=== PATIENT | male | born 1960 | race African-American/Black ===

== ENCOUNTER 2025-07-23 14:56 | Inpatient (IN) | payer MEDICARE, OTHER, MEDICAID, SELFPAY ==
[2025-07-23] VITALS (17 sets, daily range): BP systolic 134–176; BP diastolic 71–93; PULSE 68–86; RESP 13–24; TEMP 35.9–36.5; O2SAT 93–100; BMI 24.8
--- NOTE | ~2025-07-23 | XR_ITS ---
EXAMINATION: XR retrograde pyelo w/stent RT DATE: 07/24/2025 10:48 INDICATION: Right internal ureteral stent placement TECHNIQUE: Fluoroscopic images from a right internal ureteral stent placement are submitted for review. 19 seconds of fluoroscopy time. FINDINGS: There is a right double-J internal ureteral stent projecting in expected position, with proximal Orla loop at the level of the renal pelvis and distal loop in the pelvis within the bladder lumen. IMPRESSION: 1. Right internal ureteral stent placement. Please refer to real-time procedural findings for details. Reviewed, dictated and finalized at location O. IMPRESSION: 1. Right internal ureteral stent placement. Please refer to real-time procedu ral findings for details.
--- NOTE | ~2025-07-23 | CT_ITS ---
EXAMINATION: CT abdomen pelvis wo con DATE: 07/23/2025 16:53 INDICATION: Right flank pain. Hematuria TECHNIQUE: Computed tomography (CT) of the abdomen and pelvis was performed without intravenous contrast. The dose-length product was 301.45 mGy-cm. COMPARISON: None. FINDINGS: Moderate-sized patchy opacities in the visualized lower lungs. Liver, spleen, adrenal glands and pancreas are unremarkable. Gallbladder is unremarkable. Abdominal aorta is partially calcified but is not aneurysmal. No left-sided hydronephrosis. There is a 1.4 cm nonobstructing right renal stone. Mild-to- moderate right-sided hydronephrosis and mild to moderate right-sided hydroureter. There is a 4 mm calcification in the right mid ureter. There is a 5 mm calcification in the distal right ureter about the right ureterovesicular junction. There is right perinephric and right periureteral fat stranding. Moderate concentric thickening of the marcum of the mildly distended bladder. Multiple metallic densities in the left inner thigh presumably due to previous trauma. No enlarged lymph nodes identified in the abdomen or pelvis. Prostate gland is partially calcified. No appendicitis. No dilated bowel loops. Small moderate amount of stool. Intimal degenerative change scattered throughout the visualized thoracic spine. IMPRESSION: 1. Exta-ih-kftjifim right-sided hydronephrosis and mild to moderate right- sided hydroureter. There is a 4 mm calcification in the right mid ureter. There is a 5 mm calcification in the distal right ureter about the right ureterovesicular junction. There is right perinephric and right periureteral fat stranding. 2. Moderate concentric thickening of the marcum of the mildly distended bladder. 3. Moderate-sized patchy opacities in the visualized lower lungs. Reviewed, dictated and finalized at location Q. IMPRESSION: 1. Ryug-tm-baogvxgn right-sided hydronephrosis and mild to moderate right-osvaldo ed hydroureter. There is a 4 mm calcification in the right mid ureter. There is a 5 mm calcification in the distal right ureter about the right ureterovesicul ar junction. There is right perinephric and right periureteral fat stranding. 2. Moderate concentric thickening of the marcum of the mildly distended bladder . 3. Moderate-sized patchy opacities in the visualized lower lungs.
--- NOTE | ~2025-07-23 | XR_ITS ---
XR abdomen/kub 1V 07/24/2025 08:19 Indication: Kidney stones Procedure: KUB Comparison: No prior studies for comparison. Findings: There is a right renal stone. There is calcification in the right pelvis, likely representing a distal ureteral stone. Bowel gas pattern nonobstructive. No acute osseous abnormality. Lung bases unremarkable. Impression: 1: Probable distal right ureteral stone near the UVJ. 2: Right nephrolithiasis. Reviewed, dictated and finalized at location O. Impression: 1: Probable distal right ureteral stone near the UVJ. 2: Right nephrolithiasis.
[2025-07-23 15:36] LABS: Hematocrit 38.2 % (42.0-52.0); Hemoglobin 13.5 g/dL (14.0-18.0); Immature Granulocyte Percent A 0.4 % (0-0.5); Lymphocytes Absolute Auto 1.36 K/mm3 (0.9-3.2); Mean Corpuscular HGB Conc 35.3 g/dl (32-36); Mean Corpuscular Hemoglobin 30.5 pg (26-34); Mean Corpuscular Volume 86.2 fl (80-100); Nucleated Red Blood Cells Absolute Auto 0.000 K/mm3 (0.0-0.012); Nucleated Red Blood Cells Perc 0.0 % (0.0-0.2); Platelet Count Result 293 k/mm3 (150-375); Red Blood Count 4.43 M/mm3 (4.6-6.20); White Blood Count 9.3 K/mm3 (4.5-10.0)
[2025-07-23] MEDS: MORPHINE SULFATE (*CRX) 4 MG/ML INJ IV PUSH ×3 (15:36→20:21)
[2025-07-23] MEDS: ONDANSETRON INJ 4 MG/2 ML VIAL IV PUSH (15:36)
[2025-07-23] MEDS: SODIUM CHLORIDE 0.9% IV 1,000 ML 999 ML IV CONT (15:36)
--- OUTSIDE RECORDS SUMMARY | 2025-07-23 15:45 | XMS_ITS | Encounter Summary ---
Author Organization [facility] Address [address] [place] [address] Care Team Providers Care Shade Classifier Name Role Phone Pia Deleon MD Primary Care Provider + Encounter Details Date Type Department Care Team (Late st Contact Info) Description 08/09/2007 Outpatient Historical [facility] Adult Hospitalists [facility] [address] [place] [address] [place] [address] [address] Social History Tobacco Use Types Packs/Day Years Used Date Smoking Tobacco: Never Assessed Sex and Gender Information Value Date Recorded Sex Assigned at Not on file Legal Sex Male 4:54 AM PAROLE OR PROBATION OFFICER Gender Identity Not on file Sexual Orientation Not on file documented as of this encounter Plan of Treatment Not on file documented as of this encounter Visit Diagnoses Not on filedocumented in this encounter Additional Health Concerns Infection Onset Date Last Indicated Resolved Time R/O Respiratory 12/17/2024 12/17/2024 12/17/2024 1 :31 PM PAROLE OR PROBATION OFFICER COVID-19 12/17/2024 12/17/2024 01/06/2025 1:16 AM PAROLE OR PROBATION OFFICER documented as of this encounter Care Teams Shade Classifier Relationship Specialty Start Date End Date Pia Deleon MD [address] [place] [address] PCP - General Internal Medicine 01/29/19 documented as of this encounter
--- OUTSIDE RECORDS SUMMARY | 2025-07-23 15:45 | XMS_ITS | Encounter Summary ---
Author Organization [facility] Address [address] [place] [address] Care Team Providers Care Geospatial Technician Name Role Phone Pia Deleon MD Primary Care Provider + Encounter Details Date Type Department Care Team (Late st Contact Info) Description 08/08/2007 Outpatient Historical [facility] [address] [address] Social History Tobacco Use Types Packs/Day Years Used Date Smoking Tobacco: Never Assessed Sex and Gender Information Value Date Recorded Sex Assigned at Not on file Legal Sex Male 4:54 AM SITE SPECIALIST Gender Identity Not on file Sexual Orientation Not on file documented as of this encounter Plan of Treatment Not on file documented as of this encounter Visit Diagnoses Not on filedocumented in this encounter Additional Health Concerns Infection Onset Date Last Indicated Resolved Time R/O Respiratory 12/17/2024 12/17/2024 12/17/2024 1 :31 PM SITE SPECIALIST COVID-19 12/17/2024 12/17/2024 01/06/2025 1:16 AM SITE SPECIALIST documented as of this encounter Care Teams Geospatial Technician Relationship Specialty Start Date End Date Pia Deleon MD [address] [place] [phone] PCP - General Internal Medicine 01/29/19 documented as of this encounter
--- OUTSIDE RECORDS SUMMARY | 2025-07-23 15:45 | XMS_ITS | Encounter Summary ---
Author Organization [facility] Address [address] [place] [address] Care Team Providers Care Ruby On Rails Developer Name Role Phone Pia Deleon MD Primary Care Provider + Encounter Details Date Type Department Care Team (Late st Contact Info) Description 08/06/2007 Inpatient Historical HIS [place] [address] [facility] [address] [place] [address] Marcia Chauhan MD NO ADDRESS ON FILE Esophageal Reflux (Primary Dx) Social History Tobacco Use Types Packs/Day Years Used Date Smoking Tobacco: Never Assessed Sex and Gender Information Value Date Recorded Sex Assigned at Not on file Legal Sex Male 4:54 AM CYTOLOGY TEACHER Gender Identity Not on file Sexual Orientation Not on file documented as of this encounter Plan of Treatment Not on file documented as of this encounter Procedures Procedure Name Priority Date/Time Associated Diagnosis Comments PHENYTOIN LEVEL, TOTAL Routine 7 3:15 PM CDT SEDIMENTATION RATE Routine 08/08/2007 5: 47 AM CDT D-DIMER Routine 08/08/2007 5:47 AM CDT C-REACTIVE PROTEIN Routine 08/08/2007 5: 47 AM CDT PHENYTOIN LEVEL, TOTAL Routine 7 8:30 AM CDT TROPONIN (W/REFLEX CKMB/CK) Routine 08/07/2007 1:20 AM CDT LIPASE Routine 08/06/2007 7:01 PM CDT CBC WITH DIFFERENTIAL Routine 08/06/2007 5:11 PM CDT CBC WITH DIFFERENTIAL Routine 08/06/2007 5:11 PM CDT COMPREHENSIVE METABOLIC PANEL Routine 08/06/2007 5:11 PM CDT TROPONIN (W/REFLEX CKMB/CK) Routine 08/06/2007 5:10 PM CDT documented in this encounter Results * (ABNORMAL) PHENYTOIN TOTAL (08/08/2007 3:15 PM CDT) PHENYTOIN TOTAL 4.3(L) 10.0 - 20.0 ug/mL INTERFACE SYSTEM Comment: Phenytoin Toxic Level = >30 ug/mL Phenytoin Severely Toxic Level = >40 ug/mL 08/08/2007 3:15 PM CDT us Marcia Chauhan MD CHEMISTRY ORDERABLES Edited Performing Organization Address [facility] Phone Number INTERFACE SYSTEM Refer to clinic/hospital department * C-REACTIVE PROTEIN (08/08/2007 5:47 AM CDT) CRP <0.2 0.0 - 0.8 mg/dL INTERFACE SYSTEM 08/08/2007 5:47 AM CDT us Marcia Chauhan MD CHEMISTRY ORDERABLES Edited Performing Organization Address [facility] Phone Number INTERFACE SYSTEM Refer to clinic/hospital department * SEDIMENTATION RATE (08/08/2007 5:47 AM CDT) ESR (SEDIMENTATION RATE) 7 0 - 20 mm/hr INTERFACE SYSTEM 08/08/2007 5:47 AM CDT us Marcia Chauhan MD HEMATOLOGY ORDERABLES Edited Performing Organization Address [facility] Phone Number INTERFACE SYSTEM Refer to clinic/hospital department * D-DIMER (08/08/2007 5:47 AM CDT) D-DIMER QUANT 0.22 <=0.42 ug/mL FEU INTERFACE SYSTEM Comment: DVT Screen reference range <0.45 ug/mL FEU D. Dimer Interpretation: The reference range is not clearly established in uncomplicated pregnanc ies. Values above the upper limit of the reference range are common from the 31st to 40th week of . High negative predictive values for DVT have been reported with the current methodology, as part of a comprehensive medical examination, including risk stratification. 08/08/2007 5:47 AM CDT Marcia Chauhan MD HEMATOLOGY ORDERABLES Edited Performing Organization Address [facility] Number INTERFACE SYSTEM Refer to clinic/hospital department * (ABNORMAL) PHENYTOIN TOTAL (08/07/2007 8:30 AM CDT) PHENYTOIN TOTAL 2.3(L) 10.0 - 20.0 ug/mL INTERFACE SYSTEM Comment: Phenytoin Toxic Level = >30 ug/mL Phenytoin Severely Toxic Level = >40 ug/mL 08/07/2007 8:30 AM CDT Result [facility] Marcia Chauhan MD CHEMISTRY ORDERABLES Edited Performing Organization Address [facility] Phone Number INTERFACE SYSTEM Refer to clinic/hospital department * TROPONIN (W/REFLEX CKMB/CK) (08/07/2007 1:20 AM CDT) TROPONIN T <0.01 <=0.03 ng/mL INTERFACE SYSTEM TROPONIN T INTERP Negative INTERFACE SYSTEM 08/07/2007 1:20 AM CDT Marcia Chauhan MD CHEMISTRY ORDERABLES Edited Performing Organization Address [facility]/ZIP Co de Phone Number INTERFACE SYSTEM Refer to clinic/hospital department * LIPASE (08/06/2007 7:01 PM CDT) LIPASE 20 13 - 60 U/L INTERFAC E SYSTEM 08/06/2007 7:01 PM CDT Marcia Chauhan MD CHEMISTRY ORDERABLES Edited Performing Organization Address [facility] Co de Phone Number INTERFACE SYSTEM Refer to clinic/hospital department * CBC WITH DIFFERENTIAL (08/06/2007 5:11 PM CDT) NEUTROPHILS 55 45 - 70 % INTERFAC E SYSTEM LYMPHOCYTES 36 16 - 45 % INTERFAC E SYSTEM MONOCYTES 8 3 - 13 % INTERFACE SYSTEM EOSINOPHILS 1 0 - 7 % INTERFAC E SYSTEM BASOPHILS 0 0 - 2 % INTERFACE SYSTEM NEUTROPHIL ABSOLUTE 4.09 1.90 - 7.00 K/uL INTERFACE SYSTEM LYMPHOCYTE ABSOLUTE 2.67 0.70 - 4.50 K/uL INTERFACE SYSTEM MONOCYTE ABSOLUTE 0.60 0.10 - 1.30 K/uL INTERFACE SYSTEM EOSINOPHIL ABSOLUTE 0.06 0.00 - 0.70 K/uL INTERFACE SYSTEM BASOPHILS ABSOLUTE 0.02 0.00 - 0.20 K/uL INTERFACE SYSTEM 08/06/2007 5:11 PM CDT Marcia Chauhan MD HEMATOLOGY ORDERABLES Edited Performing Organization Address [facility] Co de Phone Number INTERFACE SYSTEM Refer to clinic/hospital department * (ABNORMAL) CBC WITH DIFFERENTIAL (08/06/2007 5:11 PM CDT) WBC 7.4 4.0 - 9.8 K/uL INTERFACE SYSTEM RBC 4.66 4.50 - 5.40 M/uL INTERFACE SYSTEM HEMOGLOBIN 14.3 13.6 - 16.5 g/dL INTERFACE SYSTEM HEMATOCRIT 38.9(L) 40.0 - 48.0 % INTERFACE SYSTEM MCV 83.5 82.0 - 99.0 fL INTERFACE SYSTEM MCH 30.7 27.2 - 32.6 pg INTERFACE SYSTEM MCHC 36.8(H) 31.5 - 35.5 % INTERFACE SYSTEM RDW 12.4 11.5 - 14.5 % INTERFACE SYSTEM RDW-STDEV 37.3 37.1 - 48.7 fL INTERFACE SYSTEM PLATELETS 237 140 - 350 K/uL INTERFACE SYSTEM MPV 11.0 9.3 - 12.4 fL INTERFACE SYSTEM 08/06/2007 5:11 PM CDT Marcia Chauhan MD HEMATOLOGY ORDERABLES Edited INTERFACE SYSTEM Refer to clinic/hospital department * COMPREHENSIVE METABOLIC PANEL (08/06/2007 5:11 PM CDT) GLUCOSE 96 65 - 99 mg/dL INTERFACE SYSTEM CREATININE 0.79 0.67 - 1.17 mg/dL INTERFACE SYSTEM CALCIUM 9.2 8.4 - 10.2 mg/dL INTERFACE SYSTEM ALKALINE PHOSPHATASE 68 40 - 129 U/L INTERFACE SYSTEM AST 22 12 - 38 U/L INTERFACE SYSTEM ALT 21 0 - 41 U/L INTERFACE SYSTEM TOTAL PROTEIN 7.9 6.3 - 8.6 g/dL INTERFACE SYSTEM ALBUMIN 4.7 3.4 - 4.8 g/dL INTERFACE SYSTEM BILIRUBIN TOTAL 0.4 0.2 - 1.0 mg/dL INTERFACE SYSTEM BUN 16 6 - 20 mg/dL INTERFACE SYSTEM SODIUM 139 135 - 145 mmol/L INTERFACE SYSTEM POTASSIUM 3.5 3.5 - 4.9 mmol/L INTERFACE SYSTEM CHLORIDE 104 96 - 108 mmol/L INTERFACE SYSTEM CO2 26 22 - 30 mmol/L INTERFACE SYSTEM GFR, >60 >=60 mL/min/1.7 sq meter INTERFACE SYSTEM GFR >60 >=60 mL/min/1.7 sq meter INTERFACE SYSTEM Comment: Estimated GFR rate interpretative information for both Americans and non- Americans is available on the [facility] Intranet at: [email or web address] Select: Lab Policies and Procedures Select: Reference Ranges - GFR 08/06/2007 5:11 PM CDT Marcia Chauhan MD CHEMISTRY ORDERABLES Edited Performing Organization Address City/[facility]/ZIP Co de Phone Number INTERFACE SYSTEM Refer to clinic/hospital department * TROPONIN (W/REFLEX CKMB/CK) (08/06/2007 5:10 PM CDT) TROPONIN T <0.01 <=0.03 ng/mL INTERFACE SYSTEM TROPONIN T INTERP Negative INTERFACE SYSTEM 08/06/2007 5:10 PM CDT Marcia Chauhan MD CHEMISTRY ORDERABLES Edited INTERFACE SYSTEM Refer to clinic/hospital department documented in this encounter Visit Diagnoses Diagnosis Esophageal reflux- Primary documented in this encounter Additional Health Concerns Infection Onset Date Last Indicated Resolved Time R/O Respiratory 12/17/2024 12/17/2024 12/17/2024 1 :31 PM CYTOLOGY TEACHER COVID-19 12/17/2024 12/17/2024 01/06/2025 1:16 AM CYTOLOGY TEACHER documented as of this encounter Care Teams Ruby On Rails Developer Relationship Specialty Start Date End Date Pia Deleon MD [address] [place] [phone] PCP - General Internal Medicine 01/29/19 documented as of this encounter
--- OUTSIDE RECORDS SUMMARY | 2025-07-23 15:45 | XMS_ITS | Encounter Summary ---
Author Organization [facility] Address [address] [place] [address] Care Team Providers Care Staffing Assistant Name Role Phone Pia Deleon MD Primary Care Provider + Encounter Details Date Type Department Care Team (Late st Contact Info) Description 05/29/2007 Outpatient Historical [facility] Internal Medicine - [place] [address] [place] [address] Don Carver MD [address] [facility] [address] [place] [phone] Social History Tobacco Use Types Packs/Day Years Used Date Smoking Tobacco: Never Assessed Sex and Gender Information Value Date Recorded Sex Assigned at Not on file Legal Sex Male 4:54 AM DETECTIVE PRECINCT Gender Identity Not on file Sexual Orientation Not on file documented as of this encounter Plan of Treatment Not on file documented as of this encounter Visit Diagnoses Not on filedocumented in this encounter Additional Health Concerns Infection Onset Date Last Indicated Resolved Time R/O Respiratory 12/17/2024 12/17/2024 12/17/2024 1 :31 PM DETECTIVE PRECINCT COVID-19 12/17/2024 12/17/2024 01/06/2025 1:16 AM DETECTIVE PRECINCT documented as of this encounter Care Teams Staffing Assistant Relationship Specialty Start Date End Date Pia Deleon MD [address] [place] [address] PCP - General Internal Medicine 01/29/19 documented as of this encounter
--- OUTSIDE RECORDS SUMMARY | 2025-07-23 15:45 | XMS_ITS | Encounter Summary ---
Author Organization [facility] Address [address] [place] [address] Care Team Providers Care Long Filler Cigar Roller Machine Name Role Phone Pia Deleon MD Primary Care Provider + Encounter Details Date Type Department Care Team (Late st Contact Info) Description 08/07/2007 Outpatient Historical [facility] Adult [place] Hospitalists [address] [address] Social History Tobacco Use Types Packs/Day Years Used Date Smoking Tobacco: Never Assessed Sex and Gender Information Value Date Recorded Sex Assigned at Not on file Legal Sex Male 4:54 AM PRINT PRODUCER Gender Identity Not on file Sexual Orientation Not on file documented as of this encounter Plan of Treatment Not on file documented as of this encounter Visit Diagnoses Not on filedocumented in this encounter Additional Health Concerns Infection Onset Date Last Indicated Resolved Time R/O Respiratory 12/17/2024 12/17/2024 12/17/2024 1 :31 PM PRINT PRODUCER COVID-19 12/17/2024 12/17/2024 01/06/2025 1:16 AM PRINT PRODUCER documented as of this encounter Care Teams Long Filler Cigar Roller Machine Relationship Specialty Start Date End Date Pia Deleon MD [address] [place] [phone] PCP - General Internal Medicine 01/29/19 documented as of this encounter
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
--- OUTSIDE RECORDS SUMMARY | 2025-07-23 15:45 | XMS_ITS | Encounter Summary ---
Author Organization [facility] Address [address] [place] [address] Care Team Providers Care Oil Separator Name Role Phone Pia Deleon MD Primary Care Provider + Encounter Details Date Type Department Care Team (Late st Contact Info) Description 05/29/2007 Outpatient Historical [facility] Internal Medicine - [place] [address] [place] [phone] Don Carver MD [address] [facility] [address] [place] [phone] Social History Tobacco Use Types Packs/Day Years Used Date Smoking Tobacco: Never Assessed Sex and Gender Information Value Date Recorded Sex Assigned at Not on file Legal Sex Male 4:54 AM PATIENT REGISTRATION MANAGER Gender Identity Not on file Sexual Orientation Not on file documented as of this encounter Plan of Treatment Not on file documented as of this encounter Visit Diagnoses Not on filedocumented in this encounter Additional Health Concerns Infection Onset Date Last Indicated Resolved Time R/O Respiratory 12/17/2024 12/17/2024 12/17/2024 1 :31 PM PATIENT REGISTRATION MANAGER COVID-19 12/17/2024 12/17/2024 01/06/2025 1:16 AM PATIENT REGISTRATION MANAGER documented as of this encounter Care Teams Oil Separator Relationship Specialty Start Date End Date Pia Deleon MD [address] [place] [address] PCP - General Internal Medicine 01/29/19 documented as of this encounter
--- OUTSIDE RECORDS SUMMARY | 2025-07-23 15:45 | XMS_ITS | Encounter Summary ---
Author Organization [facility] Address [address] [place] [address] Care Team Providers Care Supervisor Print Line Name Role Phone Pia Deleon MD Primary Care Provider + Encounter Details Date Type Department Care Team (Late st Contact Info) Description 08/06/2007 Outpatient Historical [facility] Internal Medicine - [place] [address] [place] [phone] Christopher Andujar MD [address] [place] [address] Social History Tobacco Use Types Packs/Day Years Used Date Smoking Tobacco: Never Assessed Sex and Gender Information Value Date Recorded Sex Assigned at Not on file Legal Sex Male 4:54 AM ENGINEERING CLERK Gender Identity Not on file Sexual Orientation Not on file documented as of this encounter Plan of Treatment Not on file documented as of this encounter Visit Diagnoses Not on filedocumented in this encounter Additional Health Concerns Infection Onset Date Last Indicated Resolved Time R/O Respiratory 12/17/2024 12/17/2024 12/17/2024 1 :31 PM ENGINEERING CLERK COVID-19 12/17/2024 12/17/2024 01/06/2025 1:16 AM ENGINEERING CLERK documented as of this encounter Care Teams Supervisor Print Line Relationship Specialty Start Date End Date Pia Deleon MD [address] [place] [address] PCP - General Internal Medicine 01/29/19 documented as of this encounter
--- OUTSIDE RECORDS SUMMARY | 2025-07-23 15:45 | XMS_ITS | Encounter Summary ---
Author Organization [facility] Address [address] [place] [address] Care Team Providers Care Manager Sterile Name Role Phone Pia Deleon MD Primary Care Provider + Encounter Details Date Type Department Care Team (Late st Contact Info) Description 08/06/2007 Orders Only [facility] Internal Medicine - [place] [address] [place] [address] Christopher Andujar MD [address] [place] [address] Social History Tobacco Use Types Packs/Day Years Used Date Smoking Tobacco: Never Assessed Sex and Gender Information Value Date Recorded Sex Assigned at Not on file Legal Sex Male 4:54 AM SHOOK MACHINE OPERATOR Gender Identity Not on file Sexual Orientation Not on file documented as of this encounter Progress Notes * Christopher Andujar MD - 04/16/2008 4:07 PM CDT BLOOD PRESSURE: 140/80 Right Arm Sitting PULSE: 70 Right Radial, Regular WEIGHT: 136lbs NURSE NAME: Tano Mahoney A ALLERGIES: No known drug allergies. TOBACCO USE Patient does not currently use tobacco. MEDICATIONS: Medication list current. CHIEF COMPLAINT Patient here for follow up. HISTORY: First seen about 3 months ago as new pt w/ similar c/o. Just now f/u. Labs reviewed w/ pt. 1. lost 10 lbs. 2 weeks ago have n/v. unable to keep food down. 30 mins after eat comes back up. LQabd pain. No blood. Pos heartburn. dysphagia to solids. Keeps liquids down. black tarry stools about 2 weeks ago. dizzy. 2. ?PAD Still on Plavix. No h/o PUD, GIB. 3. chest pain, sob Finally got CxR done. Took 2 months to do. CxR was normal. ?chest pain worse w/ activity. No other associated sx. 4. ?Sz d/o Phenytoin level was very low. Her reports he takes the meds. Advised that this is not possible. No sz. Was also on Keppra. ?why not on now. ?Dr. Elizabeth stopped. CURRENT MEDICATION LIST: PLAVIX ORAL TABLET 75 MG, 1 qd LIPITOR ORAL TABLET 20 MG, 1 qd PHENYTOIN ORAL SUSPENSION 100 MG/4ML, 1 tid MORPHINE SULFATE CR ORAL TABLET 12 HR 100 MG, 1 tab tid CURRENT ALLERGY LIST: ROS: GENERAL: See HISTORY OF PRESENT ILLNESS, FEELS FATIGUED. EYES: No vision changes or diplopia. CARDIAC: See HISTORY OF PRESENT ILLNESS, no orthopnea, no palpitations, no paroxysmal nocturnal dyspnea. RESPIRATORY: See HISTORY OF PRESENT ILLNESS, no cough, no hemoptysis, no wheezing, no sputum noted. SKIN/BREAST/CHEST: No rashes or non-healing lesions. No breast symptoms noted. : No dysuria or hematuria. GI: See HISTORY OF PRESENT ILLNESS. MUSCULOSKELETAL: . chronic back pain and leg pain. PHYSICAL EXAMINATION: CONSTITUTIONAL: GENERAL APPEARANCE: Healthy appearing patient in no distress. EYES: CONJUNCTIVAE/LIDS: PUPILS: NECK/THYROID: Trachea midline. No thyroid enlargement, tenderness, or mass. No supraclavicular or cervical adenopathy. RESPIRATORY: Clear to auscultation and percussion. Normal respiratory effort. CARDIOVASCULAR: CARDIAC: Regular rhythm. No murmurs, rubs, or gallops. ARTERIAL: Normal carotids, normal abdominal aorta pulse, normal pedal pulses. EDEMA/VARICOSITIES OF EXTREMITIES: No edema or varicosities. LYMPHATICS: No lymphadenopathy in the neck, no axillary lymphadenopathy, no inguinal lymphadenopathy noted, no supraclavicular lymphadenopathy noted. GASTROINTESTINAL: ABDOMEN: Normal bowel sounds, No CVA tenderness, no masses are noted, no rigidity is present, TENDERNESS NOTED IN THE EPIGASTRIC AREA. No guarding or rebound tenderness. No percussion tenderness. LIVER/SPLEEN/KIDNEY: No hepatosplenomegaly, tenderness or nodularity. Kidneys not palpable. RECTAL: Rectal exam reveals no masses or hemorrhoids, sphincter tone is normal. STOOL/HEMOCCULT: STOOL IS HEMOCCULT POSITIVE. Stool is normal. OFFICE PROCEDURES: EKG INTERPRETATION SR 65. 1-[address] elev in V3-V5. LVH by voltage. No comparison. ASSESSMENT/PLAN: 272.4-HYPERLIPIDEMIA 305.1-TOBACCO ABUSE 440.20-ATHEROSCLEROSIS, EXTREMITIES 780.39-SEIZURE LAB ORDERS: Order number: [id number] Test Ordered: PHENYTOIN LEVEL 1170 783.21-ABNORMAL LOSS OF WEIGHT V58.69-LONG-TERM USE OF OTHER MEDICATION(S) 786.50-CHEST PAIN UNSPECIFIED LAB ORDERS: Order number: [id number] Test Ordered: EKG WITH INTERPRETATION AND REPORT 70539 789.06-ABD PAIN EPIGASTRIC LAB ORDERS: Order number: [id number] Test Ordered: CBC W/ DIFFERENTIAL 3150 Order number: [id number] Test Ordered: COMPREHENSIVE METABOLIC PANEL & GFR 1112 Order number: [id number] Test Ordered: HEMOCCULT 06653 787.2-DYSPHAGIA MEDICATIONS: NEXIUM ORAL CAPSULE DELAYED RELEASE 40 MG, 1 twice a day for 1 week then 1 once a day, 32 Duration/Days Supply, 32 samples given, status: NEW PRESCRIPTION, 08/06/2007. RETURN VISIT : Patient is being hospitalized. Dr. Tien hannon. Reviewed info. to be directly admitted. Tele bed available. copy of EKG, meds, last labs given to pt and to give to nurse. Electronically Signed by: Christopher Andujar MD on Saturday, September 15, 2007 documented in this encounter Plan of Treatment Not on file documented as of this encounter Visit Diagnoses Not on filedocumented in this encounter Additional Health Concerns Infection Onset Date Last Indicated Resolved Time R/O Respiratory 12/17/2024 12/17/2024 12/17/2024 1 :31 PM SHOOK MACHINE OPERATOR COVID-19 12/17/2024 12/17/2024 01/06/2025 1:16 AM SHOOK MACHINE OPERATOR documented as of this encounter Care Teams Manager Sterile Relationship Specialty Start Date End Date Pia Deleon MD [address] [place] [phone] PCP - General Internal Medicine 01/29/19 documented as of this encounter
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
--- OUTSIDE RECORDS SUMMARY | 2025-07-23 15:45 | XMS_ITS | Encounter Summary ---
Author Organization [facility] Address [address] 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 Gender Identity Not on file Sexual Orientation Not on file documented as of this encounter Plan of Treatment Not on file documented as of this encounter Visit Diagnoses Not on filedocumented in this encounter Additional Health Concerns Infection Onset Date Last Indicated Resolved Time R/O Respiratory 12/17/2024 12/17/2024 12/17/2024 1 :31 PM METAL PLATER COVID-19 12/17/2024 12/17/2024 01/06/2025 1:16 AM METAL PLATER documented as of this encounter Care Teams Assistant Softball Coach Relationship Specialty Start Date End Date Pia Deleon MD [address] [place] [address] PCP - General Internal Medicine 01/29/19 documented as of this encounter
--- OUTSIDE RECORDS SUMMARY | 2025-07-23 15:45 | XMS_ITS | Encounter Summary ---
Author Organization [facility] Address [address] [place] [address] Care Team Providers Care Laboratory Assistant Name Role Phone Pia Deleon MD Primary Care Provider + Encounter Details Date Type Department Care Team (Latest Contact Info) Description 05/29/2007 Outpatient Historical [facility] Internal Medicine - [place] [address] [place] [address] Christopher Medellin, DDS [address], [place] [address] DM w/o Complication Type II (CMS/HCC) (Primary Dx) Social History Tobacco Use Types Packs/Day Years Used Date Smoking Tobacco: Never Assessed Sex and Gender Information Value Date Recorded Sex Assigned at Not on file 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 Gender Identity Not on file Sexual Orientation Not on file documented as of this encounter Plan of Treatment Not on file documented as of this encounter Procedures Procedure Name Priority Date/Time Associated Diagnosis Comments HIV DETECTION W/REFLX CONFIRMATION Routine 05/29/2007 4:34 PM CDT MICROALBUMIN/CREATININ E RATIO, RANDOM UR Routine 05/29/2007 4:34 PM CDT CBC WITH DIFFERENTIAL Routine 05/29/2007 4:34 PM CDT CBC WITH DIFFERENTIAL Routine 05/29/2007 4:34 PM CDT HIGH SENSITIVITY CRP Routine 05/29/2007 4:34 PM CDT TSH Routine 05/29/2007 4:34 PM CDT PSA Routine 05/29/2007 4:34 PM CDT HEMOGLOBIN A1C Routine 05/29/2007 4:34 PM CDT PHENYTOIN LEVEL, TOTAL Routine 7 4:34 PM CDT LIPID PANEL Routine 05/29/2007 4:34 PM CDT COMPREHENSIVE METABOLIC PANEL Routine 05/29/2007 4:34 PM CDT documented in this encounter Results * HIV ANTIBODY W/REFLX CONFIRMATION (05/29/2007 4:34 PM CDT) HIV-1 AND 2 ABS NON-REACTI VE NON-REACT YUNG INTERFACE SYSTEM Comment: Effective May 05, 2007, HIV 1/2 Antibody Screen with Reflexed Confirmati on has replaced HIV-1 Antibody Screen. HIV-1 Antibody Screen is no longer offered due to lack of available kits from the preservative filler machine operator. A NON-REACTIVE HIV 1/2 ANTIBODY RESULT DOES NOT EXCLUDE HIV INFECTION SINCE THE TIME FRAME FOR SEROCONVERSION IS VARIABLE. IF ACUTE HIV INFECTION IS SUSPECTED, ANTIBODY RETESTING AND NUCLEIC ACID AMPLIFICATION (HIV DNA/RNA) TESTING IS RECOMMENDED. Lab test performed by: [facility] [address] [place] [address] [address] ELIDA RODRIGUEZ MD 05/29/2007 4:34 PM CDT us Christopher Medellin DDS CHEMISTRY ORDERABLES Edit ed INTERFACE SYSTEM Refer to clinic/hospital department * MICROALBUMIN/CREATININE RATIO, RANDOM UR (05/29/2007 4:34 PM CDT) MICROALBUMIN/C REAT RATIO, UR <7 0 - 29 mg/g creatinine INTERFACE SYSTEM 05/29/2007 4:34 PM CDT Christopher Medellin DDS URINE ORDERABLES Edited Performing Organization Address [facility] de Phone Number INTERFACE SYSTEM Refer to clinic/hospital department * CBC WITH DIFFERENTIAL (05/29/2007 4:34 PM CDT) NEUTROPHILS 48 45 - 70 % INTERFAC E SYSTEM LYMPHOCYTES 38 16 - 45 % INTERFAC E SYSTEM MONOCYTES 12 3 - 13 % INTERFACE SYSTEM EOSINOPHILS 1 0 - 7 % INTERFAC E SYSTEM BASOPHILS 0 0 - 2 % INTERFACE SYSTEM NEUTROPHIL ABSOLUTE 2.53 1.90 - 7.00 K/uL INTERFACE SYSTEM LYMPHOCYTE ABSOLUTE 2.01 0.70 - 4.50 K/uL INTERFACE SYSTEM MONOCYTE ABSOLUTE 0.65 0.10 - 1.30 K/uL INTERFACE SYSTEM EOSINOPHIL ABSOLUTE 0.06 0.00 - 0.70 K/uL INTERFACE SYSTEM BASOPHILS ABSOLUTE 0.02 0.00 - 0.20 K/uL INTERFACE SYSTEM 05/29/2007 4:34 PM CDT Christopher Medellin DDS HEMATOLOGY ORDERABLES Carlos Alberto javon Performing Organization Address [facility] de Phone Number INTERFACE SYSTEM Refer to clinic/hospital department * (ABNORMAL) CBC WITH DIFFERENTIAL (05/29/2007 4:34 PM CDT) WBC 5.3 4.0 - 9.8 K/uL INTERFACE SYSTEM RBC 4.70 4.50 - 5.40 M/uL INTERFACE SYSTEM HEMOGLOBIN 14.6 13.6 - 16.5 g/dL INTERFACE SYSTEM HEMATOCRIT 40.9 40.0 - 48.0 % INTERFACE SYSTEM MCV 87.0 82.0 - 99.0 fL INTERFACE SYSTEM MCH 31.1 27.2 - 32.6 pg INTERFACE SYSTEM MCHC 35.7(H) 31.5 - 35.5 % INTERFACE SYSTEM RDW 12.2 11.5 - 14.5 % INTERFACE SYSTEM RDW-STDEV 39.1 37.1 - 48.7 fL INTERFACE SYSTEM PLATELETS 268 140 - 350 K/uL INTERFACE SYSTEM MPV 11.0 9.3 - 12.4 fL INTERFACE SYSTEM 05/29/2007 4:34 PM CDT Christopher Medellin DDS HEMATOLOGY ORDERABLES Carlos Alberto javon Performing Organization Address [facility] Phone Number INTERFACE SYSTEM Refer to clinic/hospital department * HEMOGLOBIN A1C (05/29/2007 4:34 PM CDT) HEMOGLOBIN A1C 4.5 4.1 - 6.1 % of Hgb INTERFACE SYSTEM Comment:Hemoglobin variant o bserved. GLUCOSE, MEAN BLOOD 83 mg/dL INTERFACE SYSTEM 05/29/2007 4:34 PM CDT Christopher Medellin DDS CHEMISTRY ORDERABLES Edit ed Performing Organization Address [facility] Phone Number INTERFACE SYSTEM Refer to clinic/hospital department * HIGH SENSITIVITY CRP (05/29/2007 4:34 PM CDT) CRP, HIGHLY SENSITIVE 1.9 <=3.0 mg/L INTERFACE SYSTEM Comment: CARDIOVASCULAR RISK ACCORDING TO AHA/CDC GUIDELINES FOR AGES >17 YEARS: Cardio CRP RISK ACCORDING TO AHA/CDC GUIDELINES <1.0 mg/L Low Cardiovascular Risk 1.0 - 3.0 mg/L Average Cardiovascular Risk 3.1 - 10.0 mg/L High Cardiovascular Risk > 10.0 mg/L Persistent Elevations may represent Non-Cardiovascular Inflammation 05/29/2007 4:34 PM CDT Christopher Medellin DDS CHEMISTRY ORDERABLES Edit ed Performing Organization Address [facility] Phone Number INTERFACE SYSTEM Refer to clinic/hospital department * TSH (05/29/2007 4:34 PM CDT) TSH 0.95 0.27 - 4.20 uU/mL INTERFACE SYSTEM 05/29/2007 4:34 PM CDT Christopher Medellin DDS CHEMISTRY ORDERABLES Edit ed Performing Organization Address [facility] Phone Number INTERFACE SYSTEM Refer to clinic/hospital department * (ABNORMAL) PHENYTOIN TOTAL (05/29/2007 4:34 PM CDT) PHENYTOIN TOTAL <0.6(L) 10.0 - 20.0 ug/mL INTERFACE SYSTEM Comment: Phenytoin Toxic Level = >30 ug/mL Phenytoin Severely Toxic Level = >40 ug/mL Verified by repeat analysis. 05/29/2007 4:34 PM CDT Christopher Medellin DDS CHEMISTRY ORDERABLES Edit ed INTERFACE SYSTEM Refer to clinic/hospital department * (ABNORMAL) COMPREHENSIVE METABOLIC PANEL (05/29/2007 4:34 PM CDT) GLUCOSE 82 65 - 99 mg/dL INTERFACE SYSTEM CREATININE 0.83 0.67 - 1.17 mg/dL INTERFACE SYSTEM CALCIUM 9.0 8.4 - 10.2 mg/dL INTERFACE SYSTEM ALKALINE PHOSPHATASE 78 40 - 129 U/L INTERFACE SYSTEM AST 22 12 - 38 U/L INTERFACE SYSTEM ALT 10 0 - 41 U/L INTERFACE SYSTEM TOTAL PROTEIN 8.2 6.3 - 8.6 g/dL INTERFACE SYSTEM ALBUMIN 4.6 3.4 - 4.8 g/dL INTERFACE SYSTEM BILIRUBIN TOTAL 0.5 0.2 - 1.0 mg/dL INTERFACE SYSTEM BUN 10 6 - 20 mg/dL INTERFACE SYSTEM SODIUM 135 135 - 145 mmol/L INTERFACE SYSTEM POTASSIUM 4.3 3.5 - 4.9 mmol/L INTERFACE SYSTEM CHLORIDE 97 96 - 108 mmol/L INTERFACE SYSTEM CO2 21(L) 22 - 30 mmol/L INTERFACE SYSTEM GFR, >60 >=60 mL/min/1.7 sq meter INTERFACE SYSTEM GFR >60 >=60 mL/min/1.7 sq meter INTERFACE SYSTEM Comment: Estimated GFR rate interpretative information for both Americans and non- Americans is available on the [facility] Intranet at: [email or web address] Select: Lab Policies and Procedures Select: Reference Ranges - GFR 05/29/2007 4:34 PM CDT Christopher Medellin DDS CHEMISTRY ORDERABLES Edit ed Performing Organization Address [facility] de Phone Number INTERFACE SYSTEM Refer to clinic/hospital department * (ABNORMAL) LIPID PANEL (05/29/2007 4:34 PM CDT) CHOLESTEROL 157 100 - 199 mg/dL INTERFACE SYSTEM TRIGLYCERIDE 97 10 - 149 mg/dL INTERFACE SYSTEM HDL 35(L) 40 - 59 mg/dL INTERFACE SYSTEM CHOL/HDL RATIO 4.5 2.0 - 5.0 INTER FACE SYSTEM LDL CALCULATED 103(H) <=99 mg/dL INTERFACE SYSTEM LIPID PANEL COMMENT See Below INTERFACE SYSTEM Comment: The adult ATP and pediatric NCEP classifications for lipids are available on the [facility] Intranet at: [email or web address] Select: Lab Policies and Procedures Select: Reference Ranges - Lipids 05/29/2007 4:34 PM CDT Christopher Medellin DDS CHEMISTRY ORDERABLES Edit ed Performing Organization Address [facility] de Phone Number INTERFACE SYSTEM Refer to clinic/hospital department * PSA (05/29/2007 4:34 PM CDT) PSA 1.0 0.0 - 4.0 ng/mL INTERFACE SYSTEM Comment:Performed on [employer] E170 System 05/29/2007 4:34 PM CDT Christopher Medellin DDS CHEMISTRY ORDERABLES Edit ed Performing Organization Address [facility] Co de Phone Number INTERFACE SYSTEM Refer to clinic/hospital department documented in this encounter Visit Diagnoses Diagnosis Type II or unspecified type diabetes mellitus without mention of complication, not stated as uncontrolled- Primary documented in this encounter Additional Health Concerns Infection Onset Date Last Indicated Resolved Time R/O Respiratory 12/17/2024 12/17/2024 12/17/2024 1 :31 PM ELECTRICAL TECH/PROJECT MANAGER COVID-19 12/17/2024 12/17/2024 01/06/2025 1:16 AM ELECTRICAL TECH/PROJECT MANAGER documented as of this encounter Care Teams Laboratory Assistant Relationship Specialty Start Date End Date Pia Deleon MD [address] [place] [address] PCP - General Internal Medicine 01/29/19 documented as of this encounter
--- OUTSIDE RECORDS SUMMARY | 2025-07-23 15:45 | XMS_ITS | Encounter Summary ---
Author Organization [facility] Address 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 Gender Identity Not on file Sexual Orientation Not on file documented as of this encounter Plan of Treatment Not on file documented as of this encounter Visit Diagnoses Not on filedocumented in this encounter Additional Health Concerns Infection Onset Date Last Indicated Resolved Time R/O Respiratory 12/17/2024 12/17/2024 12/17/2024 1 :31 PM ELEMENTARY ESL TEACHER COVID-19 12/17/2024 12/17/2024 01/06/2025 1:16 AM ELEMENTARY ESL TEACHER documented as of this encounter Care Teams [employer] Principal Relationship Specialty Start Date End Date Pia Deleon MD [address] [place] [address] PCP - General Internal Medicine 01/29/19 documented as of this encounter
--- OUTSIDE RECORDS SUMMARY | 2025-07-23 15:45 | XMS_ITS | Encounter Summary ---
Author Organization [facility] Address [address] 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 Gender Identity Not on file Sexual Orientation Not on file documented as of this encounter Plan of Treatment Not on file documented as of this encounter Visit Diagnoses Not on filedocumented in this encounter Additional Health Concerns Infection Onset Date Last Indicated Resolved Time R/O Respiratory 12/17/2024 12/17/2024 12/17/2024 1 :31 PM HOTEL HOUSEMAN COVID-19 12/17/2024 12/17/2024 01/06/2025 1:16 AM HOTEL HOUSEMAN documented as of this encounter Care Teams Commercial Lending Relationship Manager Relationship Specialty Start Date End Date Pia Deleon MD [address] [place] [address] PCP - General Internal Medicine 01/29/19 documented as of this encounter
--- OUTSIDE RECORDS SUMMARY | 2025-07-23 15:45 | XMS_ITS | Encounter Summary ---
Author Organization [facility] Address 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 Gender Identity Not on file Sexual Orientation Not on file documented as of this encounter Plan of Treatment Not on file documented as of this encounter Visit Diagnoses Not on filedocumented in this encounter Additional Health Concerns Infection Onset Date Last Indicated Resolved Time R/O Respiratory 12/17/2024 12/17/2024 12/17/2024 1 :31 PM GRANULIZING MACHINE OPERATOR COVID-19 12/17/2024 12/17/2024 01/06/2025 1:16 AM GRANULIZING MACHINE OPERATOR documented as of this encounter Care Teams Welding Supervisor Relationship Specialty Start Date End Date Pia Deleon MD [address] [place] [address] PCP - General Internal Medicine 01/29/19 documented as of this encounter
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
--- OUTSIDE RECORDS SUMMARY | 2025-07-23 15:45 | XMS_ITS | Encounter Summary ---
Author Organization [facility] Address [address] [place] [address] Care Team Providers Care Sea Shell Gatherer Name Role Phone Pia Deleon MD Primary Care Provider + Encounter Details Date Type Department Care Team (Late st Contact Info) Description 08/06/2007 [facility] [address] 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 Gender Identity Not on file Sexual Orientation Not on file documented as of this encounter Plan of Treatment Not on file documented as of this encounter Visit Diagnoses Not on filedocumented in this encounter Additional Health Concerns Infection Onset Date Last Indicated Resolved Time R/O Respiratory 12/17/2024 12/17/2024 12/17/2024 1 :31 PM PHOTO CHECKER AND ASSEMBLER COVID-19 12/17/2024 12/17/2024 01/06/2025 1:16 AM PHOTO CHECKER AND ASSEMBLER documented as of this encounter Care Teams Sea Shell Gatherer Relationship Specialty Start Date End Date Pia Deleon MD [address] [place] [address] PCP - General Internal Medicine 01/29/19 documented as of this encounter
--- OUTSIDE RECORDS SUMMARY | 2025-07-23 15:46 | XMS_ITS | Clinical Summary ---
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 quality of the bowel preparation was inadequate. The ileocecal valve, appendiceal orifice, and rectum were photographed. Estimated Blood Loss: Estimated blood loss was minimal. Findings: The perianal and digital rectal examinations were normal. Large amount of fibrous retained colonic content present, much of which was too large to be suctioned through the scope. There was frequent clogging. All liquid content and small material that was able was suctioned via the scope. Scope was advanced to the cecum. Able to visualize that polypoid area of ascending colon was large lipomatous component of IC valve. Interrogated with a biopsy forceps with positive pillow sign seen. No other polyps were seen. Polyps greater than 5 mm potentially could have been missed. Impression: - Preparation of the colon was inadequate. - Polypoid area in right colon found to be large lipomatous component of ICV - No specimens collected. Recommendation: - Patient has a contact number available for emergencies. The signs and symptoms of potential delayed complications were discussed with the patient. Return to normal activities tomorrow. Written discharge instructions were provided to the patient. - Resume previous diet. - Continue present medications. - Repeat colonoscopy in 6 months because the bowel preparation was poor. - Would plan for two scoops Miralax daily and low fiber diet one week prep Devon Johnston MD 10/27/2024 1:55:26 PM This report has been signed electronically. Number of Addenda: [address]; [place] [address] Devon Johnston MD GI PROCEDURE ORDERABLES Final Result from Last 3 Months or Most Recently Relevant to Health Maintenance Insurance [facility] MEDICAID [place] RX [facility] Medicare Part D RX [employer] RX Member Subscriber Plan / Payer (Ef fective 2024-Present) Name:Jf Gomez Sr. Relation to Subscriber:Self Name:Jf Gomez Sr. Subscriber ID:Not on file Payer ID:Not on file Group ID:[id number] Type:RX Commercial Address: [facility] [employer] * Guarantor: [employer] [facility] [employer]) Account Type Relation to Patient Date of Phone Billing Address Corporate Employer DEFAULT ADDRESS [address] [employer] Advance Directives For more information, please contact: [phone] * Full Code (Latest Code Status on File) Date Activated Date Inactivated Comments 10/27/2024 7:53 AM 10/27/2024 11:56 AM * Full Code Date Activated Date Inactivated Comments 08/25/2024 10:03 AM 08/25/2024 1:38 PM * Full Code Date Activated Date Inactivated Comments 08/26/2019 7:02 PM 08/27/2019 7:27 PM * Full Code Date Activated Date Inactivated Comments 08/26/2019 12:04 PM 08/26/2019 7:02 PM * Full Code Date Activated Date Inactivated Comments 06/28/2019 11:35 AM 06/29/2019 9:38 PM Care Teams Facility Maintenance Worker Relationship Specialty Start Date End Date Pia Deleon MD [address] [place] [id number] PCP - General Internal Medicine 01/29/19
--- OUTSIDE RECORDS SUMMARY | 2025-07-23 15:46 | XMS_ITS | Clinical Summary ---
Author Organization [facility] Address [address] [place] [address] Care Team Providers Care Chief Of Staff Name Role Phone Brianna Laura MD Unavailable Pia Garner MD Primary Care Provider + Source Comments [facility],non-owned Affiliates and Associated Physician Practices is amultiple site organization consisting of ambulatory clinics and hospital sitesin [place], [place], [place] and [place]. This disclosure is being madepursuant to the Care Everywhere program and may not contain all information available regarding this patient. Last updated 18.[facility] Allergies Active Allergy Reactions Criticality Noted Date Comments Contrast-Iodinated Agents For Ct/Other Anaphylaxis,Itching, Nausea and/or Vomiting High 03/06/2010 anaphylactic Reaction: ANAPHYLAXIS, Reaction: Itching, Duloxetine GI Discomfort Low 06/29/2022 Fentanyl Other High 07/24/2023 Per pt this medication gave him a heart attack Gabapentin Other,Vision Changes 03/22/2021 Ataxia, visual disturbance Lisinopril Anaphylaxis,Angioede ma,Swelling High 09/10/2019 Medications * Be aware that medications may not be up to date on this document. Alwaysverify current medications with the patient. clopidogrel (PLAVIX) 75 MG tablet Take 1 (one) tablet by mouth once daily Active EPINEPHrine (Epipen) 0.3 MG/0.3ML auto-injector pen Inject 0.3 mL into muscle once daily as needed 2 Active fluticasone propionate (Flonase) 50 MCG/ACT nasal spray [place] 2 (two) sprays into the nose once daily 2 Active linaCLOtide (Linzess) 145 MCG capsule Take 1 (one) capsule by mouth once daily 2 Active albuterol HFA (Proventil; Ventolin; Proair) 108 (90 Base) MCG/ACT inhaler Inhale 2 (two) puffs by mouth every 6 hours as needed Active atorvastatin (Lipitor) 40 MG tablet Take 1 (one) tablet by mouth 2 Active Cholecalciferol 50 MCG (2000 UT) 50 mcg 2 Active dilTIAZem ER 24hr (Tiazac) 120 MG capsule Take 1 (one) capsule by mouth once daily 2 Active fluocinolone (Dermotic) 0.01 % otic oil Apply 5 drops to affected ear twice daily 2 Active nicotine (Nicoderm CQ) 14 MG/24HR patch 2 Active Selenium Sulfide 2.3 % SHAM Lather dime sized amount to affected area in shower, let sit for 5 minutes, then rinse off 2 Active tiZANidine HCl 4 MG Take 4 mg by mouth 3 times daily Active morphine CR 12hr (MS Contin) 30 MG tablet Take 1 (one) tablet by mouth every 8 hours as needed 2 Active oxyCODONE, immediate release, (Roxicodone) 5 MG tabletIndicatio ns:Fall from ladder, subsequent encounter,Traum a Take 1 (one) tablet by mouth every 6 hours as needed for Pain 20 tablet 3 Active docusate sodium (Colace) 100 MG capsule Take 1 (one) capsule by mouth once daily as needed for Constipation 14 capsule 3 Active gabapentin (Neurontin) 300 MG capsule Take 1 (one) capsule by mouth 3 times daily 270 capsule 4 3 Active amoxicillin (Amoxil) 500 MG capsule TAKE 1 CAPSULE BY MOUTH FOUR TIMES DAILY UNTIL ALL TAKEN 4 Active cyanocobalamin (Vitamin B-12) 1000 MCG tablet 1 (one) tablet 3 Active diclofenac sodium (Voltaren) 1 % gel APPLY 2 GM TO AFFECTED AREA(S) FOUR TIMES A DAY NEEDED OVER RIGHT HAND AND/OR ELBOW AND OTHER JOINT PAINS HELPFUL FOR PAIN RELIEF. DO NOT EXCEED MORE THAN 16 GRAMS DAILY TO ANY LOWER EXTREMITY JOINT. NOT MORE THAN 8 GRAMS DAILY TO ANY UPPER EXTREMITY JOINT. MAX 32GM/DAY OVER ALL JOINTS. (MEASURE DOSE WITH RULER ATTACHED INSIDE BOX) 4 Active guaiFENesin (Organidin Nr) 200 MG tablet 1 (one) tablet 4 Active hydroCHLOROthia zide (Microzide) 12.5 MG capsule TAKE ONE CAPSULE BY MOUTH ONCE A DAY FOR BLOOD PRESSURE 3 Active trospium (Sanctura) 20 MG tablet 1 (one) tablet 3 Active azelastine (Optivar) 0.05 % ophthalmic solution 1 (one) drop 2 times daily 4 Active DULoxetine (Cymbalta) 30 MG capsule Take 1 (one) capsule by mouth once daily 4 Active HYDROcodone-shaneka taminophen (Beaver) 5-325 MG tablet TAKE 1 TABLET BY MOUTH EVERY 4 TO 6 HOURS NEEDED PAIN 4 Active ondansetron, disintegrating, (Zofran ODT) 4 MG tablet Take 1 (one) tablet by mouth every 6 hours as needed 4 Active Active Problems Problem Noted Date Diagnosed Date Other osteoporosis 09/24/2013 Other and unspecified hyperlipidemia 09/24/2013 Vitamin D deficiency 09/24/2013 Overview (09/01/2015): Cough 02/15/2012 Shoulder arthritis 01/11/2010 Fall from other slipping, tripping, or stumbling 12/12/2008 Accidental fall from ladder 10/05/2008 Trauma 10/05/2008 Immunizations Immunization Administration Dates Next Due PNEUMOCOCCAL PPSV23 06/10/2013 Family History Medical History Relation Name Comments Breast Cancer after age 50 or unknown Mother still living Diabetes Mother Hypercholesterolemia Mother Breast Cancer at or under age 50 Sister still living Relation Name Status Comments Mother Sister Social History Tobacco Use Types Packs/Day Years Used Date Smoking Tobacco: Every Day Cigarettes 0.5 35 Smokeless Tobacco: Never Tobacco Cessation:Ready to Q uit: Not Asked; Counseling Given: Not Answered Alcohol Use Standard Drinks/Week Comments No 0 (1 standard drink = 0.6 oz pur e alcohol) occasionally Sex and Gender Information Value Date Recorded Sex Assigned at Not on file 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 Gender Identity Not on file Sexual Orientation Not on file Last Filed Vital Signs Vital Sign Reading Time Taken Comments Blood Pressure 145/61 12/28/2024 1:56 PM MAGNESIUM MILL OPERATOR Pulse 73 12/28/2024 1:56 PM MAGNESIUM MILL OPERATOR Temperature 36.6 C (97.9 F) 12/28/2024 1:56 PM MAGNESIUM MILL OPERATOR Respiratory Rate 14 07/29/2023 1:34 PM CDT Oxygen Saturation 94% 12/28/2024 1:56 PM MAGNESIUM MILL OPERATOR Inhaled Oxygen Concentration - - Weight 70.3 kg (155 lb) 12/28/2024 1:56 PM MAGNESIUM MILL OPERATOR Height 175.3 cm (5' 9) 12/28/2024 1:56 PM MAGNESIUM MILL OPERATOR Body Mass Index 22.89 12/28/2024 1:56 PM MAGNESIUM MILL OPERATOR Plan of Treatment Health Maintenance Due Date Last Done Comments COLOGUARD (AGES 45-75) - COLON CA SCREENING 1960 CT COLONOGRAPHY - COLON CA SCREENING 1960 FIT - COLON CA SCREENING 1960 FLEX SIG - COLON CA SCREENING 1960 HIB VACCINE (1 of 1 - Risk 1-dose series) 02/05/1962 MENINGOCOCCAL GROUPS A/C/Y/W VACCINE (1 - Risk 2-dose series) 1962 MENINGOCOCCAL (Group B) VACCINE SHARED DECISION-MAKING (1 of 4 - Increased Risk) 1970 HEPATITIS C SCREENING 11/03/1978 DTAP/TDAP/TD VACCINES (1 - Tdap) 1979 ZOSTER VACCINE (1 of 2) 2010 PNEUMOCOCCAL VACCINE 50+ (2 of 2 - PCV) 06/10/2014 06/10/2013 Respiratory Syncytial Virus (RSV) Vaccine Pt: or over 60 yrs (1 - Risk 60-74 years 1-dose series) 2020 COVID-19 VACCINE (4 - season) 2024 09/15/2021, 01/20/2021, 12/30/2020 DEPRESSION SCREENING 12/02/2024 INFLUENZA VACCINE (#1) 2025 , 09/04/2023, 08/21/2022, Additional history exists COLON MONITORING 10/27/2034 10/27/2024, 08/25/2024 COLONOSCOPY - COLON CA SCREENING 10/27/2034 10/27/2024, 08/25/2024 Colorectal Cancer Screening 10/27/2034 HIV SCREENING Completed 02/15/2012 HEPATITIS B VACCINE Aged Out No longe r eligible based on patient's age to complete this topic HPV VACCINE Aged Out No longer eligi ble based on patient's age to complete this topic Medical Devices Implanted Type Area Chef Broiler Or Fry Device Identifier Shelf Expiration Date Model / Serial / Lot Graft Tissue Allomend Aclr Drml Mtrx 4x4 Implanted:Qty: 1 on 12/26/2022 by America Love DPM at [facility] Right: Foot [employer] 12/25/2023 [id number] / / [id number] Procedures Procedure Name Priority Date/Time Associated Diagnosis Comments HIV-1 HIV-2 ANTIBODY Today 02/15/2012 9:36 PM CDT from Last 3 Months or Most Recently Relevant to Health Maintenance Results * HIV-1 HIV-2 ANTIBODY (02/15/2012 9:36 PM CDT) HIV-1/HIV-2 Nonreactive Nonreactive [facility] Blood specimen (specimen) BLOOD SPECIMEN / Unknown 02/15/2012 9:36 PM CDT 02/15/2012 9:57 PM CDT Chayo Boggs MD LAB - CHEMISTRY ORDERABLES nal Result [facility] [address] [place] [address] from Last 3 Months or Most Recently Relevant to Health Maintenance Insurance [facility] ADMINISTRATION MEDICAID TPL THIRD DEMOCRAT LIABILITY [employer] Party Liability Advance Directives * FULL RESUSCITATION (Latest Code Status on File) Date Activated Date Inactivated Comments 06/09/2013 10:15 AM 06/10/2013 10:58 AM * FULL RESUSCITATION Date Activated Date Inactivated Comments 09/22/2012 3:58 PM 09/23/2012 5:12 PM * FULL RESUSCITATION Date Activated Date Inactivated Comments 09/20/2012 9:01 AM 09/22/2012 3:58 PM * FULL RESUSCITATION Date Activated Date Inactivated Comments 02/15/2012 7:49 PM 02/18/2012 2:12 AM * Full Code Date Activated Date Inactivated Comments 01/11/2010 11:30 AM 01/13/2010 10:02 PM Care Teams Chief Of Staff Relationship Specialty Start Date End Date Pia Deleon MD [address] [place] [id number] PCP - General Internal Medicine 12/19/22 Brianna Laura MD Endocrinology 09/24/13
--- OUTSIDE RECORDS SUMMARY | 2025-07-23 15:46 | XMS_ITS | Encounter Summary ---
Author Organization [facility] Address [address] [place] [address] Care Team Providers Care Marketing Summer Intern Name Role Phone Pia Deleon MD Primary Care Provider + Encounter Details Date Type Department Care Team (Late st Contact Info) Description 07/21/2025 External Device Data ST[place] ABSTRACTION Provider, Abstract NO ADDRESS ON FILE Social History Tobacco Use Types Packs/Day Years Used Date Smoking Tobacco: Every Day Cigarettes 0.5 30 Smokeless Tobacco: Never Alcohol Use Standard Drinks/Week Comments No 0 [...] week 06/28/2019 How often do you attend chur or holiness services? 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 Gender Identity Not on file Sexual Orientation Not on file Occupation Industry Job Start Date Job End Date Not on file Not on file Not on file Not on file documented as of this encounter Plan of Treatment Not on file documented as of this encounter Visit Diagnoses Not on filedocumented in this encounter Additional Health Concerns Assessment Noted Time PHQ-9 Depression Total Score: 4 03/25/20 24 10:41 AM CDT documented as of this encounter Care Teams Marketing Summer Intern Relationship Specialty Start Date End Date Pia Deleon MD [address] [place] [address] PCP - General Internal Medicine 01/29/19 documented as of this encounter
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
[2025-07-23 15:52] LABS: Need Manual Microscopic Reviewed
[2025-07-23 15:53] LABS: Add Urine Microscopic? YES; Appearance Urine Cloudy (Clear); Glucose Urine UA Negative (Negative); Leukocyte Esterase Ur 1+ LEU/UL (Negative); Nitrate Urine Negative (Negative); Specific Grav Ur 1.023 (1.001-1.035)
--- NOTE | 2025-07-23 15:56 | ED_ITS ---
HPI - Male Genitourinary General Chief complaint: Urogenital-Male Stated complaint: Kidney Stone Time Seen by Provider: 07/23/25 15:01 History of Present Illness HPI Narrative: Patient is a 64-year-old male who presents ER with right-sided flank pain. Sudden onset last night. Radiates into the right lower quadrant of the abdomen. Associated with nausea vomiting. He has been having hematuria as well as urinary frequency. Has history of kidney stones. No fevers or chills. Related Data Allergies Allergy/AdvReac Type Severity Reaction Status Date / Time iohexol (From contrast - CT, Allergy Severe Heart Verified 07/23/25 14:59 X-RAY) palpitations Review of Systems 2 Review of Systems: All systems reviewed & are unremarkable except as noted in HPI and below Constitutional: Constitutional: Reports no additional constitutional complaints Cardiovascular: Cardiovascular: Reports no additional cardiovascular complaints Respiratory: Respiratory: Reports no additional respiratory complaints Gastrointestinal: Gastrointestinal: Reports no additional gastrointestinal complaints Genitourinary: Genitourinary: Reports no additional male genitourinary complaints [facility] Past Medical History Medical History (Updated 07/23/25 @ 18:39 by Bon Azar MD) Kidney stones Hypertension Social History Social History (Updated 07/23/25 @ 16:00 by Bon Azar MD) Social History: [place] Exam 2 Narrative: GENERAL: Well-appearing, well-nourished, and in no acute distress. HEAD: Normocephalic, atraumatic. ENT: Mucous membranes moist. CHEST: Clear to auscultation. No respiratory distress. HEART: Regular rate and rhythm. Normal peripheral pulses. ABDOMEN: Soft, tender to palpation right lower quadrant, nondistended. Back: No midline tenderness the T/L-spine. Pain patches right flank pain. EXTREMITIES: Normal range of motion. No edema. SKIN: Warm, dry, no rash. NEURO: Alert and oriented x3. PSYCH: Normal mood and affect. Course Course Emergency Course: Persistent pain despite morphine 8 mg. Will plan admission for observation here. Urology consulted regarding stones as well as urinalysis, Dr. Mcnamara recommends ceftriaxone IV and NPO at midnight in case he needs a stent in the morning. Hospitalist service contacted and patient accepted. Vital Signs Vital signs: Vital Signs Temperature 97.7 F 07/23/25 15:03 Pulse Rate 73 07/23/25 15:03 Respiratory Rate 17 07/23/25 15:03 Blood Pressure 164/93 H 07/23/25 15:03 Pulse Oximetry 98 07/23/25 15:03 Oxygen Delivery Room Air 07/23/25 15:03 Temperature 97.7 F 07/23/25 15:10 Pulse Rate 82 07/23/25 17:55 Respiratory Rate 14 07/23/25 17:55 Blood Pressure 162/77 H 07/23/25 17:55 Pulse Oximetry 97 07/23/25 17:55 Oxygen Delivery Room Air 07/23/25 15:03 MDM - Male Genitourinary Lab Data 07/23/25 15:30 07/23/25 15:30 Labs: Lab Results 07/23/25 Range/Units 15:30 WBC 9.3 (4.5-10.0) K/mm3 RBC 4.43 L (4.6-6.20) M/mm3 Hgb 13.5 L (14.0-18.0) g/dL Hct 38.2 L (42.0-52.0) % MCV 86.2 (80-100) fl MCH 30.5 (26-34) pg MCHC 35.3 (32-36) g/dl RDW 12.2 (11.5-14.5) % Plt Count 293 (150-375) k/mm3 MPV 9.8 (7.4-10.4) fl Immature Gran % (Auto) 0.4 (0-0.5) % Neut % (Auto) 73.5 H (45.5-73.1) % Lymph % (Auto) 14.6 L (18.3-44.2) % [place] % (Auto) 11.1 H (2.6-8.5) % Eos % (Auto) 0.1 (0-4.4) % Baso % (Auto) 0.3 (0.2-1.2) % Lymph # (Auto) 1.36 (0.9-3.2) K/mm3 [place] # (Auto) 1.0 H (0.1-0.6) K/mm3 Eos # (Auto) 0.0 (0-0.3) K/mm3 Baso # (Auto) 0.0 (0.0-0.1) K/mm3 Abs Immat Gran (auto) 0.04 H (0.00-0.031) K/mm3 Absolute Neuts (auto) 6.8 H (1.3-6.7) K/mm3 Absolute Nucleated RBC 0.000 (0.0-0.012) K/mm3 Nucleated RBC % 0.0 (0.0-0.2) % Sodium 135 L (137-145) mmol/L Potassium 4.0 (3.4-5.0) mmol/L Chloride 103 (98-107) mmol/L Carbon Dioxide 24 (22-30) mmol/L Anion Gap 8 (4-12) mmol/L BUN 15 (9-20) mg/dL Creatinine 1.02 (0.7-1.3) mg/dL Estim Creat Clear Calc 63 ml/min Estimated GFR > 60 (59 - ) Glucose 113 H (65-110) mg/dL Calcium 9.8 (8.4-10.2) mg/dL Total Bilirubin 0.7 (0.2-1.3) mg/dL AST 39 (17-59) U/L ALT 18 (6-50) U/L Alkaline Phosphatase 88 (38-126) U/L Total Protein 8.2 (6.3-8.2) g/dL Albumin 4.2 (3.5-5.1) g/dL Urine Color Lane H (Yellow) Urine Appearance Cloudy H (Clear) Urine pH 6.0 (5.0-9.0) Ur Specific [place] 1.023 (1.001-1.035) Urine Protein 2+ H (Negative) mg/dL Urine Glucose (UA) Negative (Negative) mg/dL Urine Ketones Negative (Negative) mg/dL Ur Blood (Man) 3+ H (Negative) Urine Nitrate Negative (Negative) Urine Bilirubin Negative (Negative) Urine Urobilinogen 1.0 (<2.0) mg/dL Add Ur Microanalysis Reviewed Leukocyte Esterase Rfl 1+ H (Negative) MAURI/UL Urine RBC >100 H (0-2) /hpf Urine WBC 6-10 H (0-3) /hpf Ur Squamous Epith Cells Few (Few) /hpf Calcium Oxalate Crystal Present (None) /hpf Urine Bacteria 4+ H /hpf Urine Casts 6-10 Imaging Data Radiologist's impression: ITS Impressions Abdomen/Pelvis CT 07/23/25 16:55 IMPRESSION: 1. [id number] right-sided hydronephrosis and mild to moderate right- sided hydroureter. There is a 4 mm calcification in the right mid ureter. There is a 5 mm calcification in the distal right ureter about the right ureterovesicular junction. There is right perinephric and right periureteral fat stranding. 2. Moderate concentric thickening of the marcum of the mildly distended bladder. 3. Moderate-sized patchy opacities in the visualized lower lungs. Discharge Plan Discharge Clinical Impression: Ureterolithiasis, Hematuria, Acute UTI Patient Disposition: Still a Patient Condition: Stable Patient Language: Gibraltarian Follow-up/Referrals: UNKNOWN,DOCTOR [Primary Care Provider]
[2025-07-23 15:57] LABS: Alanine Aminotransferase 18 U/L (6-50); Albumin Level 4.2 g/dL (3.5-5.1); Alkaline Phosphatase 88 U/L (38-126); Anion Gap 8 mmol/L (4-12); Aspartate Amino Transferase 39 U/L (17-59); Bilirubin,Total 0.7 mg/dL (0.2-1.3); Blood Urea Nitrogen 15 mg/dL (9-20); Calcium 9.8 mg/dL (8.4-10.2); Carbon Dioxide 24 mmol/L (22-30); Chloride 103 mmol/L (98-107); Estimated CRCL calculation 63 ml/min; Estimated Glomerular Filt Rate > 60; Glucose 113 mg/dL (65-110); Potassium 4.0 mmol/L (3.4-5.0); Sodium 135 mmol/L (137-145); Total Protein 8.2 g/dL (6.3-8.2)
--- NOTE | 2025-07-23 18:44 | PM.IMHP ---
H&P: HPI History of Present Illness Date/Time: 07/23/25 18:44 Chief Complaint: Abdominal Pain Narrative: 64 y/o M with PMH of hypertension and kidney stones presents here with abdominal pain. The patient presents here from home on 07/23 for further evaluation of abdominal pain and flank pain. He reports onset at around 3:00 a.m. this morning. He describes the pain as sharp, right sided, radiation into his RLQ, constant, and no aggravating/alleviating factors. Pain is accompanied by nausea, vomiting, fever, chills, body aches, and hematuria. Per ED documentation, the patient brought in a urine sample which showed visible blood clots and hematuria. The patient reports a past medical history significant for kidney stones, with a known right kidney stone. Plan to establish care with a urologist at [facility]. Initial VS at presentation: 97.7? F, HR 73, R 17, 164/93, and 98% on RA. ED workup showed: No leukocytosis, hemoglobin 13.5, no significant electrolyte derangements, creatinine 1.02 and GFR >60, glucose 113, and UA suggestive of UTI. CT of the abdomen/pelvis showed pidz-[id number] right-sided hydronephrosis and mild to moderate right-sided hydroureter, 4 mm calcification right mid ureter, 5 mm calcification of the distal right ureter about the right UVJ, right. Nephrotic/right periureteral fat stranding, moderate concentric thickening of the marcum of the mildly distended bladder, and moderate-sized patchy opacities in the visualized lower lungs. Review of Systems Review of Systems: All systems reviewed & are unremarkable except as noted in HPI and below [facility] Past Medical History Medical History (Updated 07/23/25 @ 18:58 by Fatimah Meneses APRN) Kidney stones Hypertension Social History Social History Social History: Meds Home Medications and Allergies Allergies Allergy/AdvReac Type Severity Reaction Status Date / Time iohexol (From contrast - CT, Allergy Severe Heart Verified 07/23/25 20:26 X-RAY) palpitations Vital Signs Vital Signs - 24 hr 07/23/25 15:03 07/23/25 15:10 07/23/25 16:10 Temperature 97.7 F 97.7 F Pulse Rate 73 68 85 Respiratory Rate 17 17 20 Blood Pressure 164/93 H 134/93 H 172/81 H Pulse Oximetry 98 98 97 Oxygen Delivery Room Air 07/23/25 17:55 Temperature Pulse Rate 82 Respiratory Rate 14 Blood Pressure 162/77 H Pulse Oximetry 97 Oxygen Delivery Exam Const: General: comfortable and no acute distress Other: , male, nontoxic appearance HENMT: Face/Nose/Sinus: Normal nares present Mouth: Yes moist mucous membranes Eyes: General: appearance normal, both eyes and all related structures Sclera: sclerae normal Pupils: Equal, round and reactive pupils present EOM: EOMs intact bilaterally Resp: Effort & Inspection: normal respiratory effort Auscultation: clear to auscultation bilaterally Cardio: Rate: regular rate Rhythm: regular rhythm Other: S1-S2 present without murmur, rub, ectopy GI: Other: Tender in the lower quadrants. Abdomen soft and nondistended. Normoactive bowel sounds in all quadrants. : Other: Significant right-sided CVA tenderness. Skin: General skin exam: normal color and no rashes or lesions noted Wounds: no wounds Neuro: Speech: normal speech Motor exam (neuro): 5/5 motor strength present throughout Sensory Exam: normal sensation Other: A&O x4 Extrem: General: normal to inspection Psych: Mental Status: mental status grossly normal Affect: normal affect Other: Good insight and judgment, very pleasant H&P: Results Labs Labs: Short CBC 07/23/25 Range/Units 15:30 WBC 9.3 (4.5-10.0) K/mm3 Hgb 13.5 L (14.0-18.0) g/dL Hct 38.2 L (42.0-52.0) % Plt Count 293 (150-375) k/mm3 BMP 07/23/25 15:30 Sodium 135 L Potassium 4.0 Chloride 103 Carbon Dioxide 24 BUN 15 Creatinine 1.02 Glucose 113 H Calcium 9.8 Liver Function 07/23/25 Range/Units 15:30 Total Bilirubin 0.7 (0.2-1.3) mg/dL AST 39 (17-59) U/L ALT 18 (6-50) U/L Alkaline Phosphatase 88 (38-126) U/L Albumin 4.2 (3.5-5.1) g/dL Urine 08/22/25 Range/Units 15:30 Urine Color [place] H (Yellow) Urine Appearance Cloudy H (Clear) Urine pH 6.0 (5.0-9.0) Ur Specific [place] 1.023 (1.001-1.035) Urine Protein 2+ H (Negative) mg/dL Urine Glucose (UA) Negative (Negative) mg/dL Assessment and Plan Assessment and plan (1) Acute UTI: Code(s): N39.0 - Urinary tract infection, site not specified Status: Acute Assessment and Plan: - UA: [place], cloudy, 2+ protein, 3+ blood, 1+ leuk esterase, greater than 100 RBC, 6-10 WBC, few epithelial cells, 4+ bacteria - UC pending - no previous micro available for review - started on Ceftriaxone on 07/23 (2) Ureterolithiasis: Code(s): N20.1 - Calculus of ureter Status: Acute Assessment and Plan: - CT abd/pelvis: 1. Ambk-vn-ewgeiipt right-sided hydronephrosis and mild to moderate right-sided hydroureter. There is a 4 mm calcification in the right mid ureter. There is a 5 mm calcification in the distal right ureter about the right ureterovesicular junction. There is right perinephric and right periureteral fat stranding. 2. Moderate concentric thickening of the marcum of the mildly distended bladder. 3. Moderate-sized patchy opacities in the visualized lower lungs. - urology consulted - NPO at midnight - strain urine - plan for abd xr in am - analgesics p.r.n. - monitor renal function (3) Hypertension: Qualifiers: Hypertension type: primary hypertension Qualified Code(s): I10 - Essential (primary) hypertension Code(s): I10 - Essential (primary) hypertension Status: Chronic Assessment and Plan: - chronic, currently 162/77 - continue home medications - monitor Plan Diet: Heart healthy, NPO midnight GI Prophylaxis: n/a DVT Prophylaxis: SCDs IV fluids: 1L -> 125 mL/hr Lines/Tubes: Peripheral IV Code Status: Full code Quality VTE Prophylaxis VTE prophylaxis: mechanical ordered Hospitalist MIPS Advance Care Plan I have confirmed that the patient's Advanced Care Plan is present, code status is documented, or surrogate decision maker is listed in patient medical record.: Yes Medication Reconciliation I have utilized all available resources to obtain, update and review the patients current medications (includes all prescriptions, OTC, herbals, cannabis, and nutritional supplements).: Yes
[2025-07-23] MEDS: HYDROmorphone HCL INJ (*CRX) 1 MG/ML SYR 0.5 MG IV PUSH (18:58)
[2025-07-23] MEDS: cefTRIAXone 1 GM in SODIUM CHLORIDE 0.9% IV 50 ML 100 ML IVPB (19:03)
[2025-07-23] MEDS: SODIUM CHLORIDE 0.9% IV 1,000 ML 125 ML IV CONT (19:37)
--- NOTE | 2025-07-23 21:07 | ADMGEN ---
This patient, Jf Gomez , was admitted to 3 [facility] Surg Room 301-01. Patient/family oriented to hospital policies and general routines including ID bracelet, bed and alarms, visiting hours, pain management, procedures, bathroom and other care routines, personal items, smoking policy, room service/diet, and visiting hours. Information on how to activate the Rapid Response Team has been discussed. Patient/Family are encouraged to report perceived risks to care and to ask questions if they do not understand what they are told or what they should do.
[2025-07-23] MEDS: HYDROcodone/acetaminophen (*CRX) 5-325 MG TABLET 1 TAB PO (21:08)
[2025-07-24] VITALS (9 sets, daily range): BP systolic 101–166; BP diastolic 65–92; PULSE 66–88; RESP 10–20; TEMP 36.1–36.6; O2SAT 92–100
[2025-07-24] MEDS: PRAVASTATIN SODIUM 20 MG TABLET 40 MG PO ×2 (00:12→21:42)
[2025-07-24] MEDS: MORPHINE SULFATE (*CRX) 4 MG/ML INJ IV PUSH ×3 (00:13→05:27)
[2025-07-24] MEDS: SODIUM CHLORIDE 0.9% IV 1,000 ML 125 ML IV CONT ×3 (01:52→22:52)
[2025-07-24] MEDS: MORPHINE SULFATE (*CRX) 15 MG TAB IR 30 MG PO ×3 (06:16→21:42)
[2025-07-24] MEDS: HYDROmorphone HCL INJ (*CRX) 1 MG/ML SYR IV PUSH ×5 (06:16→19:39)
[2025-07-24 06:26] LABS: Hematocrit 37.1 % (42.0-52.0); Hemoglobin 13.1 g/dL (14.0-18.0); Immature Granulocyte Percent A 0.4 % (0-0.5); Lymphocytes Absolute Auto 1.81 K/mm3 (0.9-3.2); Mean Corpuscular HGB Conc 35.3 g/dl (32-36); Mean Corpuscular Hemoglobin 31.1 pg (26-34); Mean Corpuscular Volume 88.1 fl (80-100); Nucleated Red Blood Cells Absolute Auto 0.000 K/mm3 (0.0-0.012); Nucleated Red Blood Cells Perc 0.0 % (0.0-0.2); Platelet Count Result 267 k/mm3 (150-375); Red Blood Count 4.21 M/mm3 (4.6-6.20); White Blood Count 8.4 K/mm3 (4.5-10.0)
[2025-07-24 06:47] LABS: Anion Gap 5 mmol/L (4-12); Blood Urea Nitrogen 12 mg/dL (9-20); Calcium 8.6 mg/dL (8.4-10.2); Carbon Dioxide 25 mmol/L (22-30); Chloride 105 mmol/L (98-107); Estimated CRCL calculation 49 ml/min; Estimated Glomerular Filt Rate 55; Glucose 102 mg/dL (65-110); Potassium 3.5 mmol/L (3.4-5.0); Sodium 135 mmol/L (137-145)
--- NOTE | 2025-07-24 07:54 | P.PNIM_ITS ---
Progress Note: A&P Assessment and Plan (1) Acute UTI: Code(s): N39.0 - Urinary tract infection, site not specified Status: Inactive Assessment and Plan: - UA: [place], cloudy, 2+ protein, 3+ blood, 1+ leuk esterase, greater than 100 RBC, 6-10 WBC, few epithelial cells, 4+ bacteria - UC pending - no previous micro available for review - started on Ceftriaxone on 07/23 (2) Ureterolithiasis: Code(s): N20.1 - Calculus of ureter Status: Acute Assessment and Plan: - CT abd/pelvis: 1. Fygh-bm-nfrcexqs right-sided hydronephrosis and mild to moderate right- sided hydroureter. There is a 4 mm calcification in the right mid ureter. There is a 5 mm calcification in the distal right ureter about the right ureterovesicular junction. There is right perinephric and right periureteral fat stranding. 2. Moderate concentric thickening of the marcum of the mildly distended bladder. 3. Moderate-sized patchy opacities in the visualized lower lungs. - urology consulted -cystoscopy and right ureteral stent placement performed on 07/24 - strain urine - plan for abd xr in am - analgesics p.r.n. - monitor renal function (3) Hypertension: Qualifiers: Hypertension type: primary hypertension Qualified Code(s): I10 - Essential (primary) hypertension Code(s): I10 - Essential (primary) hypertension Status: Chronic Assessment and Plan: - chronic, currently 162/77 - continue home medications - monitor Plan Diet: Heart healthy, NPO midnight GI Prophylaxis: n/a DVT Prophylaxis: SCDs IV fluids: 1L -> 125 mL/hr Lines/Tubes: Peripheral IV Code Status: Full code Subjective Date/time seen: 07/24/25 07:54 Interval history: Patient underwent cystoscopy and right ureteral stent placement. Patient complains of pain. Review of Systems Review of Systems: All systems reviewed & are unremarkable except as noted in HPI and below Exam Const: General: comfortable and no acute distress Other: , male, nontoxic appearance HENMT: Face/Nose/Sinus: Normal nares present Mouth: Yes moist mucous membranes Eyes: General: appearance normal, both eyes and all related structures Sclera: sclerae normal Pupils: Equal, round and reactive pupils present EOM: EOMs intact bilaterally Resp: Effort & Inspection: normal respiratory effort Auscultation: clear to auscultation bilaterally Cardio: Rate: regular rate Rhythm: regular rhythm Other: S1-S2 present without murmur, rub, ectopy GI: Other: Tender in the lower quadrants. Abdomen soft and nondistended. Normoactive bowel sounds in all quadrants. : Other: Significant right-sided CVA tenderness. Skin: General skin exam: normal color and no rashes or lesions noted Wounds: no wounds Neuro: Cranial nerves: Yes Equal, round and reactive pupils present Speech: normal speech Motor exam (neuro): 5/5 motor strength present throughout Sensory Exam: normal sensation Other: A&O x4 Extrem: General: normal to inspection Psych: Mental Status: mental status grossly normal Affect: normal affect Other: Good insight and judgment, very pleasant Objective Data Vital Signs Vital Signs: Vital Signs - 24 hr 07/23/25 15:03 07/23/25 15:08 07/23/25 15:09 Temperature 97.7 F Pulse Rate 73 73 80 Respiratory Rate 17 18 14 Blood Pressure 164/93 H 164/93 H Pulse Oximetry 98 95 98 Oxygen Delivery Room Air 07/23/25 15:10 07/23/25 15:16 07/23/25 15:30 Temperature 97.7 F Pulse Rate 68 72 71 Respiratory Rate 17 24 H 13 Blood Pressure 134/93 H Pulse Oximetry 98 97 Oxygen Delivery 07/23/25 15:31 07/23/25 16:10 07/23/25 17:34 Temperature Pulse Rate 74 85 Respiratory Rate 13 20 Blood Pressure 145/71 H 172/81 H Pulse Oximetry 93 97 97 Oxygen Delivery 07/23/25 17:45 07/23/25 17:55 07/23/25 18:00 Temperature Pulse Rate 82 71 Respiratory Rate 14 23 H Blood Pressure 162/77 H Pulse Oximetry 98 97 97 Oxygen Delivery 07/23/25 18:16 07/23/25 18:31 07/23/25 19:01 Temperature 96.7 F L Pulse Rate 76 84 86 Respiratory Rate 19 18 18 Blood Pressure 176/87 H Pulse Oximetry 96 95 Oxygen Delivery 07/23/25 19:03 07/23/25 19:05 07/24/25 05:20 Temperature 97 F L Pulse Rate 79 79 87 Respiratory Rate 20 14 20 Blood Pressure 165/79 H 158/71 H Pulse Oximetry 100 100 95 Oxygen Delivery Intake/Output Intake/Output: Intake & Output 07/21/25 07/22/25 07/23/25 07/24/25 23:59 23:59 23:59 23:59 Intake Total 1050 781.3 Output Total 550 Balance 1050 231.3 Meds/Results Medications: Active Medications Generic Name Dose Route Start Last Admin Trade Name Freq PRN Reason Stop Dose Admin Acetaminophen 650 mg 07/23/25 19:01 Acetaminophen 325 Mg Tablet PO Q6H PRN Pain Rated 1-3 Hydrocodone Bitart/Acetaminophen 1 tab 07/23/25 19:01 07/23/25 21:08 Hydrocodone/Acetaminophen (*Crx) 5-325 Mg Tablet PO 1 tab Q4H PRN Administration Pain Rated 4-6 Bupropion HCl 100 mg 07/24/25 09:00 Bupropion Hcl 100 Mg Tablet PO DAILY [facility] Clopidogrel Bisulfate 75 mg 07/24/25 09:00 Clopidogrel Bisulfate 75 Mg Tablet PO DAILY [facility] Diltiazem HCl 120 mg 07/24/25 09:00 Diltiazem Hcl Cd 120 Mg Cap.24hr PO DAILY RICK Hydrochlorothiazide 12.5 mg 07/24/25 09:00 Hydrochlorothiazide 12.5 Mg Capsule PO DAILY [facility] Hydromorphone HCl 1 mg 07/24/25 05:56 Hydromorphone Hcl Inj (*Crx) 1 Mg/Ml Syr IV PUSH Q3H PRN Pain Rated 7-10 Hydroxyzine HCl 25 mg 07/24/25 09:00 Hydroxyzine Hcl 25 Mg Tablet PO TID [facility] Ceftriaxone Sodium 1 gm/ 50 mls @ 100 mls/hr 07/24/25 18:00 Sodium Chloride IVPB Q24H RICK Sodium Chloride 1,000 mls @ 125 mls/hr 07/23/25 18:45 07/24/25 01:52 Normal Saline Iv IV CONT 125 mls/hr .Q8H RICK Administration Linaclotide 145 mcg 07/24/25 07:00 Linaclotide 145 Mcg Capsule PO DAILY@0700 RICK Loratadine 10 mg 07/24/25 09:00 Loratadine 10 Mg Tablet PO QAM [facility] Miscellaneous Information 0 each 07/23/25 22:30 Buprenorphine Hcl [Belbuca] 75 Mcg Film- Nonformulary. Please Obtain A Home Supply If Poss XX 08/22/25 22:29 CLARIFY RICK Morphine Sulfate 30 mg 07/24/25 06:00 07/24/25 06:16 Morphine Sulfate (*Crx) 15 Mg Tab Ir PO 30 mg Q8HR RICK Administration Non-Formulary Medication 75 mcg 07/23/25 22:15 Buprenorphine Hcl [Belbuca] BUCCAL 08/22/25 22:14 Q12H RICK Ondansetron HCl 4 mg 07/23/25 18:43 Ondansetron Inj 4 Mg/2 Ml Vial IV PUSH Q4H PRN Nausea Pravastatin Sodium 40 mg 07/23/25 22:20 07/24/25 00:12 Pravastatin Sodium 20 Mg Tablet PO 40 mg HS RICK Administration Trazodone HCl 50 mg 07/23/25 22:09 Trazodone Hcl 50 Mg Tablet PO HS PRN Insomnia Radiology Results: ITS Impressions Abdomen/Pelvis CT 07/23/25 16:55 IMPRESSION: 1. Zect-yi-bivopzlh right-sided hydronephrosis and mild to moderate right- sided hydroureter. There is a 4 mm calcification in the right mid ureter. There is a 5 mm calcification in the distal right ureter about the right ureterovesicular junction. There is right perinephric and right periureteral fat stranding. 2. Moderate concentric thickening of the marcmu of the mildly distended bladder. 3. Moderate-sized patchy opacities in the visualized lower lungs. Labs Labs: Laboratory Results - last 24 hr 07/23/25 07/24/25 15:30 05:16 WBC 9.3 8.4 RBC 4.43 L 4.21 L Hgb 13.5 L 13.1 L Hct 38.2 L 37.1 L MCV 86.2 88.1 MCH 30.5 31.1 MCHC 35.3 35.3 RDW 12.2 11.9 Plt Count 293 267 MPV 9.8 10.2 Immature Gran % (Auto) 0.4 0.4 Neut % (Auto) 73.5 H 64.6 Lymph % (Auto) 14.6 L 21.7 [place] % (Auto) 11.1 H 12.5 H Eos % (Auto) 0.1 0.6 Baso % (Auto) 0.3 0.2 Lymph # (Auto) 1.36 1.81 [place] # (Auto) 1.0 H 1.0 H Eos # (Auto) 0.0 0.1 Baso # (Auto) 0.0 0.0 Abs Immat Gran (auto) 0.04 H 0.03 Absolute Neuts (auto) 6.8 H 5.4 Absolute Nucleated RBC 0.000 0.000 Nucleated RBC % 0.0 0.0 Sodium 135 L 135 L Potassium 4.0 3.5 Chloride 103 105 Carbon Dioxide 24 25 Anion Gap 8 5 BUN 15 12 Creatinine 1.02 1.31 H Estim Creat Clear Calc 63 49 Estimated GFR > 60 55 L Glucose 113 H 102 Calcium 9.8 8.6 Total Bilirubin 0.7 AST 39 ALT 18 Alkaline Phosphatase 88 Total Protein 8.2 Albumin 4.2 Urine Color [place] H Urine Appearance Cloudy H Urine pH 6.0 Ur Specific [place] 1.023 Urine Protein 2+ H Urine Glucose (UA) Negative Urine Ketones Negative Ur Blood (Man) 3+ H Urine Nitrate Negative Urine Bilirubin Negative Urine Urobilinogen 1.0 Add Ur Microanalysis Reviewed Leukocyte Esterase Rfl 1+ H Urine RBC >100 H Urine WBC 6-10 H Ur Squamous Epith Cells Few Calcium Oxalate Crystal Present Urine Bacteria 4+ H Urine Casts 6-10 Quality VTE Prophylaxis VTE prophylaxis: mechanical ordered Hospitalist MIPS Advance Care Plan I have confirmed that the patient's Advanced Care Plan is present, code status is documented, or surrogate decision maker is listed in patient medical record.: Yes Medication Reconciliation I have utilized all available resources to obtain, update and review the patients current medications (includes all prescriptions, OTC, herbals, cannabis, and nutritional supplements).: Yes
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
--- NOTE | 2025-07-24 09:11 | WPDHPUPDATE1 ---
History and Physical Update Update Date/Time: 07/24/25 09:11 History and Physical has been reviewed, including an updated exam of the patient. There are NO changes in the patient's condition. Risks, benefits, and alternatives have been discussed and questions answered. Patient agrees to proceed with procedure.
--- NOTE | 2025-07-24 09:57 | WPDANESEPPF ---
Anes - Initial Pre Proc Eval Procedure: Operation Date: 07/24/25 10:30 Proposed Procedures p Cysto, RPG, Stone Ext, Stent Placement(Right) - Jair Mcnamara MD Date/Time: 07/24/25 09:57 Surgeon: Fatuma Ochoa MD Pre Op Diagnosis: ureterolithiasis, uti Patient Data Age: 64 Gender: M Height: 1.73 m Weight: 74.1 kg Last Vital Signs Temp 36.1 C L 07/24/25 05:20 Pulse 87 07/24/25 05:20 Resp 20 07/24/25 05:20 BP 158/71 H 07/24/25 05:20 Pulse Ox 95 07/24/25 05:20 O2 Del Method Room Air 07/23/25 15:03 Allergies Allergy/AdvReac Type Severity Reaction Status Date / Time iohexol (From contrast - CT, Allergy Severe Heart Verified 07/23/25 20:26 X-RAY) palpitations Home Medications ?Medication ?Instructions ?Recorded ?Confirmed ?Type buprenorphine HCl 75 mcg buccal 75 mcg buccal Q12H 07/23/25 07/23/25 History film (Belbuca) bupropion HCl 100 mg tablet 100 mg PO DAILY 07/23/25 07/23/25 History cetirizine 10 mg tablet (24Hour 10 mg PO DAILY allergy symptoms 07/23/25 07/23/25 History Allergy) clopidogrel 75 mg tablet 75 mg PO DAILY 07/23/25 07/23/25 History diltiazem HCl 120 mg 120 mg PO DAILY 07/23/25 07/23/25 History capsule,extended release 24 hr (Cardizem CD) hydrochlorothiazide 25 mg tablet 12.5 mg PO DAILY 07/23/25 07/23/25 History hydroxyzine HCl 25 mg tablet 25 mg PO TID 07/23/25 07/23/25 History linaclotide 145 mcg capsule 145 mcg PO DAILY 07/23/25 07/23/25 History (Linzess) morphine 30 mg immediate release 30 mg PO Q8H 07/23/25 07/23/25 History tablet pravastatin 40 mg tablet 40 mg PO HS 07/23/25 07/23/25 History trazodone 100 mg tablet 50 mg PO HS PRN insomnia 07/23/25 07/23/25 History Laboratory Tests 07/23/25 07/24/25 15:30 05:16 WBC 9.3 K/mm3 8.4 K/mm3 (4.5-10.0) (4.5-10.0) RBC 4.43 L M/mm3 4.21 L M/mm3 (4.6-6.20) (4.6-6.20) Hgb 13.5 L g/dL 13.1 L g/dL (14.0-18.0) (14.0-18.0) Hct 38.2 L % 37.1 L % (42.0-52.0) (42.0-52.0) MCV 86.2 fl 88.1 fl (80-100) (80-100) MCH 30.5 pg 31.1 pg (26-34) (26-34) MCHC 35.3 g/dl 35.3 g/dl (32-36) (32-36) RDW 12.2 % 11.9 % (11.5-14.5) (11.5-14.5) Plt Count 293 k/mm3 267 k/mm3 (150-375) (150-375) MPV 9.8 fl 10.2 fl (7.4-10.4) (7.4-10.4) Immature Gran % (Auto) 0.4 % 0.4 % (0-0.5) (0-0.5) Neut % (Auto) 73.5 H % 64.6 % (45.5-73.1) (45.5-73.1) Lymph % (Auto) 14.6 L % 21.7 % (18.3-44.2) (18.3-44.2) Real % (Auto) 11.1 H % 12.5 H % (2.6-8.5) (2.6-8.5) Eos % (Auto) 0.1 % 0.6 % (0-4.4) (0-4.4) Baso % (Auto) 0.3 % 0.2 % (0.2-1.2) (0.2-1.2) Lymph # (Auto) 1.36 K/mm3 1.81 K/mm3 (0.9-3.2) (0.9-3.2) Real # (Auto) 1.0 H K/mm3 1.0 H K/mm3 (0.1-0.6) (0.1-0.6) Eos # (Auto) 0.0 K/mm3 0.1 K/mm3 (0-0.3) (0-0.3) Baso # (Auto) 0.0 K/mm3 0.0 K/mm3 (0.0-0.1) (0.0-0.1) Abs Immat Gran (auto) 0.04 H K/mm3 0.03 K/mm3 (0.00-0.031) (0.00-0.031) Absolute Neuts (auto) 6.8 H K/mm3 5.4 K/mm3 (1.3-6.7) (1.3-6.7) Absolute Nucleated RBC 0.000 K/mm3 0.000 K/mm3 (0.0-0.012) (0.0-0.012) Nucleated RBC % 0.0 % 0.0 % (0.0-0.2) (0.0-0.2) Sodium 135 L mmol/L 135 L mmol/L (137-145) (137-145) Potassium 4.0 mmol/L 3.5 mmol/L (3.4-5.0) (3.4-5.0) Chloride 103 mmol/L 105 mmol/L (98-107) (98-107) Carbon Dioxide 24 mmol/L 25 mmol/L (22-30) (22-30) Anion Gap 8 mmol/L 5 mmol/L (4-12) (4-12) BUN 15 mg/dL 12 mg/dL (9-20) (9-20) Creatinine 1.02 mg/dL 1.31 H mg/dL (0.7-1.3) (0.7-1.3) Estim Creat Clear Calc 63 ml/min 49 ml/min Estimated GFR > 60 55 L (59 - ) (59 - ) Glucose 113 H mg/dL 102 mg/dL (65-110) (65-110) Calcium 9.8 mg/dL 8.6 mg/dL (8.4-10.2) (8.4-10.2) Total Bilirubin 0.7 mg/dL (0.2-1.3) AST 39 U/L (17-59) ALT 18 U/L (6-50) Alkaline Phosphatase 88 U/L (38-126) Total Protein 8.2 g/dL (6.3-8.2) Albumin 4.2 g/dL (3.5-5.1) Urine Color [place] H (Yellow) Urine Appearance Cloudy H (Clear) Urine pH 6.0 (5.0-9.0) Ur Specific [employer] [place] 1.023 (1.001-1.035) Urine Protein 2+ H mg/dL (Negative) Urine Glucose (UA) Negative mg/dL (Negative) Urine Ketones Negative mg/dL (Negative) Ur Blood (Man) 3+ H (Negative) Urine Nitrate Negative (Negative) Urine Bilirubin Negative (Negative) Urine Urobilinogen 1.0 mg/dL (<2.0) Add Ur Microanalysis Reviewed Leukocyte Esterase Rfl 1+ H MAURI/UL (Negative) Urine RBC >100 H /hpf (0-2) Urine WBC 6-10 H /hpf (0-3) Ur Squamous Epith Cells Few /hpf (Few) Calcium Oxalate Crystal Present /hpf (None) Urine Bacteria 4+ H /hpf Urine Casts 6-10 Patient hx anesthesia problems: none Family hx anesthesia problems: none Results Review: All pre-operative results and documents have been reviewed as part of the pre-operative evaluation. [facility] Past Medical History Medical History (Updated 07/24/25 @ 10:00 by Gerald Miller MD) Smoker Acute UTI Kidney stones Hypertension Social History Social History Social History: Smoking packs per day: 1 Smoking cigarettes per day: 20.0 Years smoked: 50 Smoking pack-years: 50.00 Smoking status: Current every day smoker Tobacco type: cigarettes Second hand tobacco smoke exposure: Yes Alcohol intake: never Substance use: current Substance use type: prescription drug Other substance usage details: morphine Lack of Transportation: No Lack of Food: Never True Current Housing: I Have Housing Concerned About Future Housing: No Difficulty Paying Gas/Electric Bills: No Difficulty Paying for Meds: No Currently Unemployed: No Education: Grade School Difficulty w/ Childcare or Family Care: No Spiritual care concerns: No Anes - Eval Final PreProcedure Day of Procedure 07/24/25 09:57 Patient weight: normal Heart: regular rate and rhythm Lungs: clear to auscultation Airway: Mallampati scale class II Neurological: alert and oriented Last oral intake: >/= 8 hours ASA classification: III Emergent: yes Anesthetic plan: proceed Anesthesia type and monitoring: general LMA and standard monitoring Results Review: All pre-operative results and documents have been reviewed as part of the pre-operative evaluation. Informed Consent: The patient's anesthetic plan and its attendant risks and benefits were discussed with the patient/family/POA. Questions were solicited and answers provided to the satisfaction of the patient/family/POA.
[2025-07-24] MEDS: LIDOCAINE 2% GEL UROJET 10 ML PKG MUCOUS MEM (10:30)
--- NOTE | 2025-07-24 10:43 | W.PM.PROC2 ---
Procedure Note - Detailed Date of Procedure 07/24/25 Pre-op Diagnosis Right ureteral stones Post-op Diagnosis Same Procedure Performed 1. Cystoscopy and right ureteral stent placement 2. Right retrograde pyelogram 3. Fluoroscopy with interpretation of images, less than 1 hour Surgeon Jair Mcnamara MD Anesthesia General Indications This is a very pleasent year old man with several days of right renal colic, nausea and concer for fevers. He agrees to stent placement with plan for delayed definitive stone management. Findings 1. No bladder masses, lesions or stones. 2. Appropriate placement of 6f variable length stent. 3. Hydronephrotic drip, no purulence noted. Description of Procedure After a discussion of risks and benefits, the patient offered informed written consent. He was taken to the operating room and placed on the table in the supine position. Anesthesia was induced and an LMA placed, he was transferred to the dorsal lithotomy position and prepped and draped. A call to order was placed. I placed a cystoscope with the aforementioned findings. I attempted to place a wire into the right ureter without success. Unfortunately the wire bent back. I removed the cystoscope and used a semi-rigid ureteroscope which allowed enough purchase to advance the wire to the renal pelvis easily. The ureteroscope was removed. I then backloaded the cystoscope over the wire and advanced into the bladder. The stent was placed over the wire and the wire was removed. Fluoroscopically, the stone was in excellent position. The cystoscope was removed and the patient cleaned and dried of betadine prep. He was transferred to the supine position and awoken from anesthesia. Implants 6F variable length JJ right ureteral stent. Estimated Blood Loss 0 Urine Output 450 Drains Yes Pathology None sent Complications No immediate complications Condition Stable Disposition PACU
[2025-07-24] MEDS: LACTATED RINGERS 1,000 ML 30 ML IV CONT (10:50)
[2025-07-24] MEDS: LORATADINE 10 MG TABLET PO (12:29)
[2025-07-24] MEDS: dilTIAZem HCL CD 120 MG CAP.24HR PO (12:29)
[2025-07-24] MEDS: CLOPIDOGREL BISULFATE 75 MG TABLET PO (12:29)
--- NOTE | 2025-07-24 13:11 | ECG_ITS ---
Test Date: 2025-07-24 14:52:34 Measurements Intervals [place] Rate: 93 P: 59 ID: [id number] QRS: 31 QRSD: 84 T: 38 QT: 336 QTc: 419 Interpretive Statements SINUS RHYTHM EARLY PRECORDIAL R/S TRANSITION MINIMAL Q WAVES- HIGH LATERAL LEADS BASELINE WANDER- II, III, AVR, AVL, AVF, V2-V6 BORDERLINE ECG No previous ECG available for comparison Electronically Signed On 07-24-2025 17:12:10 CDT by Bryson Gagnon D.O.
[2025-07-24] MEDS: cefTRIAXone 1 GM in SODIUM CHLORIDE 0.9% IV 50 ML 100 ML IVPB (17:00)
[2025-07-25] MEDS: HYDROmorphone HCL INJ (*CRX) 1 MG/ML SYR IV PUSH ×3 (03:57→20:20)
[2025-07-25] MEDS: MORPHINE SULFATE (*CRX) 15 MG TAB IR 30 MG PO ×3 (05:51→21:35)
[2025-07-25] MEDS: LINACLOTIDE 145 MCG CAPSULE PO (05:51)
[2025-07-25 05:59] LABS: Hematocrit 34.4 % (42.0-52.0); Hemoglobin 11.8 g/dL (14.0-18.0); Mean Corpuscular HGB Conc 34.3 g/dl (32-36); Mean Corpuscular Hemoglobin 30.8 pg (26-34); Mean Corpuscular Volume 89.8 fl (80-100); Platelet Count Result 255 k/mm3 (150-375); Red Blood Count 3.83 M/mm3 (4.6-6.20); White Blood Count 14.8 K/mm3 (4.5-10.0)
[2025-07-25 06:00] VITALS: BP 122/76; PULSE 77; RESP 17; TEMP 36.4; O2SAT 92
[2025-07-25 06:23] LABS: Alanine Aminotransferase 15 U/L (6-50); Albumin Level 3.4 g/dL (3.5-5.1); Alkaline Phosphatase 95 U/L (38-126); Anion Gap 7 mmol/L (4-12); Aspartate Amino Transferase 25 U/L (17-59); Bilirubin,Total 0.4 mg/dL (0.2-1.3); Blood Urea Nitrogen 14 mg/dL (9-20); Calcium 8.9 mg/dL (8.4-10.2); Carbon Dioxide 21 mmol/L (22-30); Chloride 107 mmol/L (98-107); Estimated CRCL calculation 65 ml/min; Estimated Glomerular Filt Rate > 60; Glucose 172 mg/dL (65-110); Potassium 3.8 mmol/L (3.4-5.0); Sodium 135 mmol/L (137-145); Total Protein 6.8 g/dL (6.3-8.2)
--- NOTE | 2025-07-25 07:42 | P.PNUR_ITS ---
Progress Note: A&P Assessment and Plan (1) Ureterolithiasis: Code(s): N20.1 - Calculus of ureter Status: Acute Plan 1. Agree with antibiotics, tailor to C&S. 2. Patient will need Ureteroscopy and laser lithotripsy in upcoming weeks, my office will coordinate. Subjective Subjective Date/Time Seen: 07/25/25 07:42 Interval history: NAEO, reports flank pain while voiding, denies other complaint or concern. Review of Systems 2 Review of Systems: All systems reviewed & are unremarkable except as noted in HPI and below Exam Const: General: comfortable and no acute distress Eyes: General: appearance normal, both eyes and all related structures Resp: Effort & Inspection: normal respiratory effort Cardio: Rate: regular rate GI: Inspection: non-distended Skin: General skin exam: normal color Extrem: General: normal to inspection Psych: Mental Status: mental status grossly normal Affect: normal affect Objective Data Vital Signs Vital Signs: Vital Signs - 24 hr 07/24/25 08:00 07/24/25 10:50 07/24/25 11:05 Temperature 97.4 F L Pulse Rate 75 66 Respiratory Rate 12 10 L Blood Pressure 103/65 101/65 Pulse Oximetry 100 100 Oxygen Delivery Room Air Simple Face Mask Simple Face Mask Oxygen Flow Rate 6 6 Fraction of Inspired Oxygen 07/24/25 11:20 07/24/25 11:35 07/24/25 11:50 Temperature Pulse Rate 82 82 66 Respiratory Rate 14 15 17 Blood Pressure 116/65 134/74 135/74 Pulse Oximetry 100 100 95 Oxygen Delivery Simple Face Mask Room Air Room Air Oxygen Flow Rate 6 Fraction of Inspired Oxygen 07/24/25 13:35 07/24/25 21:56 07/24/25 22:00 Temperature 97.2 F L 97.8 F Pulse Rate 78 88 85 Respiratory Rate 20 20 18 Blood Pressure 166/81 H 123/92 H Pulse Oximetry 97 94 92 Oxygen Delivery Room Air Oxygen Flow Rate Fraction of Inspired Oxygen 21 07/24/25 23:24 07/25/25 06:00 Temperature 97.5 F L Pulse Rate 77 Respiratory Rate 17 Blood Pressure 122/76 Pulse Oximetry 92 Oxygen Delivery Room Air Oxygen Flow Rate Fraction of Inspired Oxygen Intake/Output Intake/Output: Intake & Output 07/22/25 07/23/25 07/24/25 07/25/25 23:59 23:59 23:59 23:59 Intake Total 1050 2981.3 550 Output Total 1000 1150 Balance 1050 1981.3 -600 Meds/Results Medications: Active Medications Generic Name Dose Route Start Last Admin Trade Name Freq PRN Reason Stop Dose Admin Acetaminophen 650 mg 07/23/25 19:01 Acetaminophen 325 Mg Tablet PO Q6H PRN Pain Rated 1-3 Hydrocodone Bitart/Acetaminophen 1 tab 07/23/25 19:01 07/23/25 21:08 Hydrocodone/Acetaminophen (*Crx) 5-325 Mg Tablet PO 1 tab Q4H PRN Administration Pain Rated 4-6 Bupropion HCl 100 mg 07/24/25 09:00 07/24/25 12:28 Bupropion Hcl 100 Mg Tablet PO 100 mg DAILY RICK Administration Clopidogrel Bisulfate 75 mg 07/24/25 09:00 07/24/25 12:29 Clopidogrel Bisulfate 75 Mg Tablet PO 75 mg DAILY RICK Administration Diltiazem HCl 120 mg 07/24/25 09:00 07/24/25 12:29 Diltiazem Hcl Cd 120 Mg Cap.24hr PO 120 mg DAILY RICK Administration Fentanyl Citrate 25 mcg 07/24/25 09:56 Fentanyl Citrate Inj (*Crx) 100 Mcg/2 Ml Vial IV PUSH Q2M PRN Pain Hydrochlorothiazide 12.5 mg 07/24/25 09:00 07/24/25 12:29 Hydrochlorothiazide 12.5 Mg Capsule PO 12.5 mg DAILY RICK Administration Hydromorphone HCl 1 mg 07/24/25 05:56 07/25/25 03:57 Hydromorphone Hcl Inj (*Crx) 1 Mg/Ml Syr IV PUSH 1 mg Q3H PRN Administration Pain Rated 7-10 Hydroxyzine HCl 25 mg 07/24/25 09:00 07/24/25 16:36 Hydroxyzine Hcl 25 Mg Tablet PO 25 mg TID RICK Administration Ceftriaxone Sodium 1 gm/ 50 mls @ 100 mls/hr 07/24/25 18:00 07/24/25 17:30 Sodium Chloride IVPB Infused Q24H RICK Infusion Sodium Chloride 1,000 mls @ 125 mls/hr 07/23/25 18:45 07/24/25 22:52 Normal Saline Iv IV CONT 125 mls/hr .Q8H RICK Administration Lactated Ringer's 1,000 mls @ 30 mls/hr 07/24/25 10:00 07/24/25 11:44 Lr - Lactated Ringers Iv IV CONT Infused .Q24H RICK Infusion Linaclotide 145 mcg 07/24/25 07:00 07/25/25 05:51 Linaclotide 145 Mcg Capsule PO 145 mcg DAILY@0700 RICK Administration Loratadine 10 mg 07/24/25 09:00 07/24/25 12:29 Loratadine 10 Mg Tablet PO 10 mg QAM RICK Administration Miscellaneous Information 0 each 07/23/25 22:30 Buprenorphine Hcl [Belbuca] 75 Mcg Film- Nonformulary. Please Obtain A Home Supply If Poss XX 08/22/25 22:29 CLARIFY RICK Morphine Sulfate 30 mg 07/24/25 06:00 07/25/25 05:51 Morphine Sulfate (*Crx) 15 Mg Tab Ir PO 30 mg Q8HR RICK Administration Non-Formulary Medication 75 mcg 07/23/25 22:15 Buprenorphine Hcl [Belbuca] BUCCAL 08/22/25 22:14 Q12H RICK Ondansetron HCl 4 mg 07/23/25 18:43 Ondansetron Inj 4 Mg/2 Ml Vial IV PUSH Q4H PRN Nausea Ondansetron HCl 4 mg 07/24/25 09:56 Ondansetron Inj 4 Mg/2 Ml Vial IV PUSH ONCE PRN Nausea Pravastatin Sodium 40 mg 07/23/25 22:20 07/24/25 21:42 Pravastatin Sodium 20 Mg Tablet PO 40 mg HS RICK Administration Trazodone HCl 50 mg 07/23/25 22:09 07/24/25 21:42 Trazodone Hcl 50 Mg Tablet PO 50 mg HS PRN Administration Insomnia Radiology Results: ITS Impressions Abdomen/Pelvis CT 07/23/25 16:55 IMPRESSION: 1. [id number] right-sided hydronephrosis and mild to moderate right- sided hydroureter. There is a 4 mm calcification in the right mid ureter. There is a 5 mm calcification in the distal right ureter about the right ureterovesicular junction. There is right perinephric and right periureteral fat stranding. 2. Moderate concentric thickening of the marcum of the mildly distended bladder. 3. Moderate-sized patchy opacities in the visualized lower lungs. Abdomen X-Ray 07/24/25 08:25 Impression: 1: Probable distal right ureteral stone near the UVJ. 2: Right nephrolithiasis. Retrograde Pyelogram 07/24/25 11:02 IMPRESSION: 1. Right internal ureteral stent placement. Please refer to real-time procedural findings for details. Labs Labs: Laboratory Results - last 24 hr 07/25/25 04:58 WBC 14.8 H RBC 3.83 L Hgb 11.8 L Hct 34.4 L MCV 89.8 MCH 30.8 MCHC 34.3 RDW 11.9 Plt Count 255 MPV 10.6 H Sodium 135 L Potassium 3.8 Chloride 107 Carbon Dioxide 21 L Anion Gap 7 BUN 14 Creatinine 0.98 Estim Creat Clear Calc 65 Estimated GFR > 60 Glucose 172 H Calcium 8.9 Total Bilirubin 0.4 AST 25 ALT 15 Alkaline Phosphatase 95 Total Protein 6.8 Albumin 3.4 L
--- NOTE | 2025-07-25 08:53 | P.PNIM_ITS ---
Progress Note: A&P Assessment and Plan (1) Acute UTI: Code(s): N39.0 - Urinary tract infection, site not specified Status: Inactive Assessment and Plan: - UA: [place], cloudy, 2+ protein, 3+ blood, 1+ leuk esterase, greater than 100 RBC, 6-10 WBC, few epithelial cells, 4+ bacteria - UC pending - no previous micro available for review - started on Ceftriaxone on 07/23 (2) Ureterolithiasis: Code(s): N20.1 - Calculus of ureter Status: Acute Assessment and Plan: - CT abd/pelvis: 1. Lhzs-od-mhbyicxr right-sided hydronephrosis and mild to moderate right- sided hydroureter. There is a 4 mm calcification in the right mid ureter. There is a 5 mm calcification in the distal right ureter about the right ureterovesicular junction. There is right perinephric and right periureteral fat stranding. 2. Moderate concentric thickening of the marcum of the mildly distended bladder. 3. Moderate-sized patchy opacities in the visualized lower lungs. - urology consulted -cystoscopy and right ureteral stent placement performed on 07/24 - analgesics p.r.n. - monitor renal function (3) Hypertension: Qualifiers: Hypertension type: primary hypertension Qualified Code(s): I10 - Essential (primary) hypertension Code(s): I10 - Essential (primary) hypertension Status: Chronic Assessment and Plan: - chronic, currently 162/77 - continue home medications - monitor Plan Diet: Heart healthy, NPO midnight GI Prophylaxis: n/a DVT Prophylaxis: SCDs IV fluids: 1L -> 125 mL/hr Lines/Tubes: Peripheral IV Code Status: Full code Subjective Date/time seen: 07/25/25 08:53 Interval history: Patient WBC has been increased. Possibly reactive due to surgery. No evidence of fever. Pending urine culture. Review of Systems Review of Systems: All systems reviewed & are unremarkable except as noted in HPI and below Exam Const: General: comfortable and no acute distress Other: , male, nontoxic appearance HENMT: Face/Nose/Sinus: Normal nares present Mouth: Yes moist mucous membranes Eyes: General: appearance normal, both eyes and all related structures Sclera: sclerae normal Pupils: Equal, round and reactive pupils present E OM: EOMs intact bilaterally Resp: Effort & Inspection: normal respiratory effort Auscultation: clear to auscultation bilaterally Cardio: Rate: regular rate Rhythm: regular rhythm Other: S1-S2 present without murmur, rub, ectopy GI: Other: Tender in the lower quadrants. Abdomen soft and nondistended. Normoactive bowel sounds in all quadrants. : Other: Significant right-sided CVA tenderness. Skin: General skin exam: normal color and no rashes or lesions noted Wounds: no wounds Neuro: Cranial nerves: Yes Equal, round and reactive pupils present Speech: normal speech Motor exam (neuro): 5/5 motor strength present throughout Sensory Exam: normal sensation Other: A&O x4 Extrem: General: normal to inspection Psych: Mental Status: mental status grossly normal Affect: normal affect Other: Good insight and judgment, very pleasant Objective Data Vital Signs Vital Signs: Vital Signs - 24 hr 07/24/25 10:50 07/24/25 11:05 07/24/25 11:20 Temperature 97.4 F L Pulse Rate 75 66 82 Respiratory Rate 12 10 L 14 Blood Pressure 103/65 101/65 116/65 Pulse Oximetry 100 100 100 Oxygen Delivery Simple Face Mask Simple Face Mask Simple Face Mask Oxygen Flow Rate 6 6 6 Fraction of Inspired Oxygen 07/24/25 11:35 07/24/25 11:50 07/24/25 13:35 Temperature 97.2 F L Pulse Rate 82 66 78 Respiratory Rate 15 17 20 Blood Pressure 134/74 135/74 166/81 H Pulse Oximetry 100 95 97 Oxygen Delivery Room Air Room Air Oxygen Flow Rate Fraction of Inspired Oxygen 07/24/25 21:56 07/24/25 22:00 07/24/25 23:24 Temperature 97.8 F Pulse Rate 88 85 Respiratory Rate 20 18 Blood Pressure 123/92 H Pulse Oximetry 94 92 Oxygen Delivery Room Air Room Air Oxygen Flow Rate Fraction of Inspired Oxygen 21 07/25/25 06:00 Temperature 97.5 F L Pulse Rate 77 Respiratory Rate 17 Blood Pressure 122/76 Pulse Oximetry 92 Oxygen Delivery Oxygen Flow Rate Fraction of Inspired Oxygen Intake/Output Intake/Output: Intake & Output 07/22/25 07/23/25 07/24/25 07/25/25 23:59 23:59 23:59 23:59 Intake Total 1050 2981.3 550 Output Total 1000 1150 Balance 1050 1981.3 -600 Meds/Results Medications: Active Medications Generic Name Dose Route Start Last Admin Trade Name Freq PRN Reason Stop Dose Admin Acetaminophen 650 mg 07/23/25 19:01 Acetaminophen 325 Mg Tablet PO Q6H PRN Pain Rated 1-3 Hydrocodone Bitart/Acetaminophen 1 tab 07/23/25 19:01 07/23/25 21:08 Hydrocodone/Acetaminophen (*Crx) 5-325 Mg Tablet PO 1 tab Q4H PRN Administration Pain Rated 4-6 Bupropion HCl 100 mg 07/24/25 09:00 07/24/25 12:28 Bupropion Hcl 100 Mg Tablet PO 100 mg DAILY RICK Administration Clopidogrel Bisulfate 75 mg 07/24/25 09:00 07/24/25 12:29 Clopidogrel Bisulfate 75 Mg Tablet PO 75 mg DAILY RICK Administration Diltiazem HCl 120 mg 07/24/25 09:00 07/24/25 12:29 Diltiazem Hcl Cd 120 Mg Cap.24hr PO 120 mg DAILY RICK Administration Fentanyl Citrate 25 mcg 07/24/25 09:56 Fentanyl Citrate Inj (*Crx) 100 Mcg/2 Ml Vial IV PUSH Q2M PRN Pain Hydrochlorothiazide 12.5 mg 07/24/25 09:00 07/24/25 12:29 Hydrochlorothiazide 12.5 Mg Capsule PO 12.5 mg DAILY RICK Administration Hydromorphone HCl 1 mg 07/24/25 05:56 07/25/25 03:57 Hydromorphone Hcl Inj (*Crx) 1 Mg/Ml Syr IV PUSH 1 mg Q3H PRN Administration Pain Rated 7-10 Hydroxyzine HCl 25 mg 07/24/25 09:00 07/24/25 16:36 Hydroxyzine Hcl 25 Mg Tablet PO 25 mg TID RICK Administration Ceftriaxone Sodium 1 gm/ 50 mls @ 100 mls/hr 07/24/25 18:00 07/24/25 17:30 Sodium Chloride IVPB Infused Q24H RICK Infusion Sodium Chloride 1,000 mls @ 125 mls/hr 07/23/25 18:45 07/24/25 22:52 Normal Saline Iv IV CONT 125 mls/hr .Q8H RICK Administration Lactated Ringer's 1,000 mls @ 30 mls/hr 07/24/25 10:00 07/24/25 11:44 Lr - Lactated Ringers Iv IV CONT Infused .Q24H RICK Infusion Linaclotide 145 mcg 07/24/25 07:00 07/25/25 05:51 Linaclotide 145 Mcg Capsule PO 145 mcg DAILY@0700 RICK Administration Loratadine 10 mg 07/24/25 09:00 07/24/25 12:29 Loratadine 10 Mg Tablet PO 10 mg QAM RICK Administration Miscellaneous Information 0 each 07/23/25 22:30 Buprenorphine Hcl [Belbuca] 75 Mcg Film- Nonformulary. Please Obtain A Home Supply If Poss XX 08/22/25 22:29 CLARIFY RICK Morphine Sulfate 30 mg 07/24/25 06:00 07/25/25 05:51 Morphine Sulfate (*Crx) 15 Mg Tab Ir PO 30 mg Q8HR RICK Administration Non-Formulary Medication 75 mcg 07/23/25 22:15 Buprenorphine Hcl [Belbuca] BUCCAL 08/22/25 22:14 Q12H RICK Ondansetron HCl 4 mg 07/23/25 18:43 Ondansetron Inj 4 Mg/2 Ml Vial IV PUSH Q4H PRN Nausea Ondansetron HCl 4 mg 07/24/25 09:56 Ondansetron Inj 4 Mg/2 Ml Vial IV PUSH ONCE PRN Nausea Pravastatin Sodium 40 mg 07/23/25 22:20 07/24/25 21:42 Pravastatin Sodium 20 Mg Tablet PO 40 mg HS RICK Administration Trazodone HCl 50 mg 07/23/25 22:09 07/24/25 21:42 Trazodone Hcl 50 Mg Tablet PO 50 mg HS PRN Administration Insomnia Radiology Results: ITS Impressions Abdomen/Pelvis CT 07/23/25 16:55 IMPRESSION: 1. Tztj-ub-hxdmpogx right-sided hydronephrosis and mild to moderate right- sided hydroureter. There is a 4 mm calcification in the right mid ureter. There is a 5 mm calcification in the distal right ureter about the right ureterovesicular junction. There is right perinephric and right periureteral fat stranding. 2. Moderate concentric thickening of the marcum of the mildly distended bladder. 3. Moderate-sized patchy opacities in the visualized lower lungs. Abdomen X-Ray 07/24/25 08:25 Impression: 1: Probable distal right ureteral stone near the UVJ. 2: Right nephrolithiasis. Retrograde Pyelogram 07/24/25 11:02 IMPRESSION: 1. Right internal ureteral stent placement. Please refer to real-time procedural findings for details. Labs Labs: Laboratory Results - last 24 hr 07/25/25 04:58 WBC 14.8 H RBC 3.83 L Hgb 11.8 L Hct 34.4 L MCV 89.8 MCH 30.8 MCHC 34.3 RDW 11.9 Plt Count 255 MPV 10.6 H Sodium 135 L Potassium 3.8 Chloride 107 Carbon Dioxide 21 L Anion Gap 7 BUN 14 Creatinine 0.98 Estim Creat Clear Calc 65 Estimated GFR > 60 Glucose 172 H Calcium 8.9 Total Bilirubin 0.4 AST 25 ALT 15 Alkaline Phosphatase 95 Total Protein 6.8 Albumin 3.4 L Quality VTE Prophylaxis VTE prophylaxis: mechanical ordered Hospitalist [facility] Advance Care Plan I have confirmed that the patient's Advanced Care Plan is present, code status is documented, or surrogate decision maker is listed in patient medical record.: Yes Medication Reconciliation I have utilized all available resources to obtain, update and review the patients current medications (includes all prescriptions, OTC, herbals, cannabis, and nutritional supplements).: Yes
[2025-07-25] MEDS: LORATADINE 10 MG TABLET PO (09:53)
[2025-07-25] MEDS: dilTIAZem HCL CD 120 MG CAP.24HR PO (09:53)
[2025-07-25] MEDS: CLOPIDOGREL BISULFATE 75 MG TABLET PO (09:53)
[2025-07-25] MEDS: HYDROcodone/acetaminophen (*CRX) 5-325 MG TABLET 1 TAB PO ×2 (12:56→22:46)
[2025-07-25] MEDS: NICOTINE (*PBKC) 21 MG PATCH 1 PATCH TRANSDERM (13:57)
[2025-07-25 14:00] VITALS: BP 159/48; PULSE 63; RESP 18; TEMP 36.1; O2SAT 96
[2025-07-25] MEDS: cefTRIAXone 1 GM in SODIUM CHLORIDE 0.9% IV 50 ML 100 ML IVPB (17:15)
[2025-07-25 20:47] VITALS: O2SAT 96
[2025-07-25 21:07] VITALS: BP 149/55; PULSE 66; RESP 18; TEMP 36.2; O2SAT 99
[2025-07-25] MEDS: PRAVASTATIN SODIUM 20 MG TABLET 40 MG PO (21:36)
[2025-07-26] MEDS: HYDROmorphone HCL INJ (*CRX) 1 MG/ML SYR IV PUSH ×3 (03:47→16:58)
[2025-07-26] MEDS: MORPHINE SULFATE (*CRX) 15 MG TAB IR 30 MG PO ×3 (05:02→21:16)
[2025-07-26 05:52] LABS: Hematocrit 33.8 % (42.0-52.0); Hemoglobin 11.9 g/dL (14.0-18.0); Mean Corpuscular HGB Conc 35.2 g/dl (32-36); Mean Corpuscular Hemoglobin 31.0 pg (26-34); Mean Corpuscular Volume 88.0 fl (80-100); Platelet Count Result 271 k/mm3 (150-375); Red Blood Count 3.84 M/mm3 (4.6-6.20); White Blood Count 11.9 K/mm3 (4.5-10.0)
[2025-07-26 06:00] VITALS: BP 144/81; PULSE 61; RESP 18; TEMP 36.5; O2SAT 97
[2025-07-26] MEDS: LINACLOTIDE 145 MCG CAPSULE PO (06:06)
[2025-07-26 06:08] LABS: Alanine Aminotransferase 15 U/L (6-50); Albumin Level 3.8 g/dL (3.5-5.1); Alkaline Phosphatase 87 U/L (38-126); Anion Gap 4 mmol/L (4-12); Aspartate Amino Transferase 22 U/L (17-59); Bilirubin,Total 0.4 mg/dL (0.2-1.3); Blood Urea Nitrogen 12 mg/dL (9-20); Calcium 9.3 mg/dL (8.4-10.2); Carbon Dioxide 26 mmol/L (22-30); Chloride 105 mmol/L (98-107); Estimated CRCL calculation 73 ml/min; Estimated Glomerular Filt Rate > 60; Glucose 173 mg/dL (65-110); Potassium 3.3 mmol/L (3.4-5.0); Sodium 135 mmol/L (137-145); Total Protein 7.1 g/dL (6.3-8.2)
[2025-07-26] MEDS: LORATADINE 10 MG TABLET PO (08:33)
[2025-07-26] MEDS: CLOPIDOGREL BISULFATE 75 MG TABLET PO (08:33)
[2025-07-26] MEDS: dilTIAZem HCL CD 120 MG CAP.24HR PO (08:33)
[2025-07-26] MEDS: POTASSIUM CHLORIDE 20 MEQ ER TABLET 40 MEQ PO (11:57)
--- NOTE | 2025-07-26 12:53 | PM.IMPN ---
Progress Note: A&P Assessment and Plan (1) Acute UTI: Code(s): N39.0 - Urinary tract infection, site not specified Status: Inactive Assessment and Plan: - UA: [place], cloudy, 2+ protein, 3+ blood, 1+ leuk esterase, greater than 100 RBC, 6-10 WBC, few epithelial cells, 4+ bacteria - UC pending - no previous micro available for review - started on Ceftriaxone on 07/23 Urine culture still pending. (2) Ureterolithiasis: Code(s): N20.1 - Calculus of ureter Status: Acute Assessment and Plan: - CT abd/pelvis: 1. Xxbu-ng-tzuwwgjl right-sided hydronephrosis and mild to moderate right-sided hydroureter. There is a 4 mm calcification in the right mid ureter. There is a 5 mm calcification in the distal right ureter about the right ureterovesicular junction. There is right perinephric and right periureteral fat stranding. 2. Moderate concentric thickening of the marcum of the mildly distended bladder. 3. Moderate-sized patchy opacities in the visualized lower lungs. - urology consulted -cystoscopy and right ureteral stent placement performed on 07/24 - analgesics p.r.n. - monitor renal function (3) Hypertension: Qualifiers: Hypertension type: primary hypertension Qualified Code(s): I10 - Essential (primary) hypertension Code(s): I10 - Essential (primary) hypertension Status: Chronic Assessment and Plan: - chronic, currently 162/77 - continue home medications - monitor Plan Diet: Heart healthy, GI Prophylaxis: n/a DVT Prophylaxis: SCDs Lines/Tubes: Peripheral IV Code Status: Full code Subjective Date/time seen: 07/26/25 12:53 Interval history: He still has some burning sensation when he pees. No flank pain no nausea vomiting wants to go home. He is scheduled to have surgery done Review of Systems Review of Systems: All systems reviewed & are unremarkable except as noted in HPI and below Exam Narrative: GENERAL: The patient is well developed, not in acute distress HEENT: Nonicteric sclerae, PERRLA, EOMI. Oropharynx clear. Moist mucous membranes. Conjunctivae appear well perfused. CHEST: Chest wall is nontender. HEART: Regular rate and rhythm without murmur, rubs, or gallops LUNGS: Clear to auscultation bilaterally. no respiratory distress ABDOMEN: Soft, positive bowel sounds, non-tender, no organomegaly. SKIN: No rash, no excessive bruising, petechiae, or purpura. NEUROLOGIC: Cranial nerves II-XII intact, alert and oriented x 3, no gross motor deficits EXTREMITIES: no edema, cyanosis or clubbing Objective Data Vital Signs Vital Signs: Vital Signs - 24 hr 07/25/25 14:00 07/25/25 20:47 07/25/25 21:07 Temperature 96.9 F L 97.2 F L Pulse Rate 63 66 Respiratory Rate 18 18 Blood Pressure 159/48 H 149/55 H Pulse Oximetry 96 96 99 Oxygen Delivery Room Air 07/26/25 06:00 07/26/25 08:00 Temperature 97.7 F Pulse Rate 61 Respiratory Rate 18 Blood Pressure 144/81 H Pulse Oximetry 97 Oxygen Delivery Room Air Intake/Output Intake/Output: Intake & Output 07/23/25 07/24/25 07/25/25 07/26/25 23:59 23:59 23:59 23:59 Intake Total 1050 2981.3 1008 818 Output Total 1000 1600 1600 Balance 1050 1981.3 -592 -782 Meds/Results Medications: Active Medications Generic Name Dose Route Start Last Admin Trade Name Freq PRN Reason Stop Dose Admin Acetaminophen 650 mg 07/23/25 19:01 Acetaminophen 325 Mg Tablet PO Q6H PRN Pain Rated 1-3 Hydrocodone Bitart/Acetaminophen 1 tab 07/23/25 19:01 07/25/25 22:46 Hydrocodone/Acetaminophen (*Crx) 5-325 Mg Tablet PO 1 tab Q4H PRN Administration Pain Rated 4-6 Bupropion HCl 100 mg 07/24/25 09:00 07/26/25 08:34 Bupropion Hcl 100 Mg Tablet PO 100 mg DAILY RICK Administration Clopidogrel Bisulfate 75 mg 07/24/25 09:00 07/26/25 08:33 Clopidogrel Bisulfate 75 Mg Tablet PO 75 mg DAILY RICK Administration Diltiazem HCl 120 mg 07/24/25 09:00 07/26/25 08:33 Diltiazem Hcl Cd 120 Mg Cap.24hr PO 120 mg DAILY RICK Administration Fentanyl Citrate 25 mcg 07/24/25 09:56 Fentanyl Citrate Inj (*Crx) 100 Mcg/2 Ml Vial IV PUSH Q2M PRN Pain Hydrochlorothiazide 12.5 mg 07/24/25 09:00 07/26/25 08:33 Hydrochlorothiazide 12.5 Mg Capsule PO 12.5 mg DAILY RICK Administration Hydromorphone HCl 1 mg 07/24/25 05:56 07/26/25 08:39 Hydromorphone Hcl Inj (*Crx) 1 Mg/Ml Syr IV PUSH 1 mg Q3H PRN Administration Pain Rated 7-10 Hydroxyzine HCl 25 mg 07/24/25 09:00 07/26/25 08:33 Hydroxyzine Hcl 25 Mg Tablet PO 25 mg TID RICK Administration Ceftriaxone Sodium 1 gm/ 50 mls @ 100 mls/hr 07/24/25 18:00 07/25/25 17:15 Sodium Chloride IVPB 100 mls/hr Q24H RICK Administration Linaclotide 145 mcg 07/24/25 07:00 07/26/25 06:06 Linaclotide 145 Mcg Capsule PO 145 mcg DAILY@0700 RICK Administration Loratadine 10 mg 07/24/25 09:00 07/26/25 08:33 Loratadine 10 Mg Tablet PO 10 mg QAM RICK Administration Miscellaneous Information 0 each 07/23/25 22:30 07/25/25 18:03 Buprenorphine Hcl [Belbuca] 75 Mcg Film- Nonformulary. Please Obtain A Home Supply If Poss XX 08/22/25 22:29 Not Given CLARIFY [facility] Morphine Sulfate 30 mg 07/24/25 06:00 07/26/25 05:02 Morphine Sulfate (*Crx) 15 Mg Tab Ir PO 30 mg Q8HR RICK Administration Nicotine 1 patch 07/25/25 14:05 07/26/25 08:34 Nicotine (*Pbkc) 21 Mg Patch TRANSDERM Not Given DAILY [facility] Non-Formulary Medication 75 mcg 07/23/25 22:15 Buprenorphine Hcl [Belbuca] BUCCAL 08/22/25 22:14 Q12H RICK Ondansetron HCl 4 mg 07/23/25 18:43 Ondansetron Inj 4 Mg/2 Ml Vial IV PUSH Q4H PRN Nausea Ondansetron HCl 4 mg 07/24/25 09:56 Ondansetron Inj 4 Mg/2 Ml Vial IV PUSH ONCE PRN Nausea Pravastatin Sodium 40 mg 07/23/25 22:20 07/25/25 21:36 Pravastatin Sodium 20 Mg Tablet PO 40 mg HS RICK Administration Trazodone HCl 50 mg 07/23/25 22:09 07/25/25 21:36 Trazodone Hcl 50 Mg Tablet PO 50 mg HS PRN Administration Insomnia Radiology Results: ITS Impressions Abdomen/Pelvis CT 07/23/25 16:55 IMPRESSION: 1. Lpyu-gr-rpvzgnmd right-sided hydronephrosis and mild to moderate right-sided hydroureter. There is a 4 mm calcification in the right mid ureter. There is a 5 mm calcification in the distal right ureter about the right ureterovesicular junction. There is right perinephric and right periureteral fat stranding. 2. Moderate concentric thickening of the marcum of the mildly distended bladder. 3. Moderate-sized patchy opacities in the visualized lower lungs. Abdomen X-Ray 07/24/25 08:25 Impression: 1: Probable distal right ureteral stone near the UVJ. 2: Right nephrolithiasis. Retrograde Pyelogram 07/24/25 11:02 IMPRESSION: 1. Right internal ureteral stent placement. Please refer to real-time procedural findings for details. Labs Labs: Laboratory Results - last 24 hr 07/26/25 04:48 WBC 11.9 H RBC 3.84 L Hgb 11.9 L Hct 33.8 L MCV 88.0 MCH 31.0 MCHC 35.2 RDW 12.1 Plt Count 271 MPV 10.5 H Sodium 135 L Potassium 3.3 L Chloride 105 Carbon Dioxide 26 Anion Gap 4 BUN 12 Creatinine 0.86 Estim Creat Clear Calc 73 Estimated GFR > 60 Glucose 173 H Calcium 9.3 Total Bilirubin 0.4 AST 22 ALT 15 Alkaline Phosphatase 87 Total Protein 7.1 Albumin 3.8
[2025-07-26 14:00] VITALS: BP 142/59; PULSE 51; RESP 18; TEMP 36.1; O2SAT 97
[2025-07-26] MEDS: cefTRIAXone 1 GM in SODIUM CHLORIDE 0.9% IV 50 ML 100 ML IVPB (17:02)
[2025-07-26 19:49] VITALS: O2SAT 96
[2025-07-26 21:00] VITALS: BP 168/90
[2025-07-26 21:10] VITALS: BP 181/70; PULSE 64; RESP 20; TEMP 36.3; O2SAT 96
[2025-07-26] MEDS: PRAVASTATIN SODIUM 20 MG TABLET 40 MG PO (21:16)
[2025-07-26 23:13] VITALS: BP 168/90
[2025-07-27] MEDS: HYDROmorphone HCL INJ (*CRX) 1 MG/ML SYR IV PUSH (02:47)
[2025-07-27] MEDS: MORPHINE SULFATE (*CRX) 15 MG TAB IR 30 MG PO ×2 (06:18→13:16)
[2025-07-27 06:20] VITALS: BP 165/77; PULSE 67; RESP 20; TEMP 36.1; O2SAT 97
[2025-07-27] MEDS: HYDROcodone/acetaminophen (*CRX) 5-325 MG TABLET 1 TAB PO (08:09)
[2025-07-27] MEDS: dilTIAZem HCL CD 120 MG CAP.24HR PO (08:09)
[2025-07-27] MEDS: LORATADINE 10 MG TABLET PO (08:09)
[2025-07-27 14:00] VITALS: BP 154/77; PULSE 72; RESP 18; TEMP 36.2; O2SAT 100
--- NOTE | 2025-07-27 14:53 | PM.DS ---
DS: Admitting Diagnosis Discharge Date 07/26/2025 Admitting Diagnosis Flank pain DS: Discharge Diagnosis Discharge Diagnosis (1) Acute UTI: Code(s): N39.0 - Urinary tract infection, site not specified Status: Inactive (2) Ureterolithiasis: Code(s): N20.1 - Calculus of ureter Status: Acute (3) Hypertension: Qualifiers: Hypertension type: primary hypertension Qualified Code(s): I10 - Essential (primary) hypertension Code(s): I10 - Essential (primary) hypertension Status: Chronic DS: Summary Hospital Course Hospital Course: # Acute UTI: - UA: [place], cloudy, 2+ protein, 3+ blood, 1+ leuk esterase, greater than 100 RBC, 6-10 WBC, few epithelial cells, 4+ bacteria - UC pending - no previous micro available for review - started on Ceftriaxone on 07/23 and remains on it. will switch to augmentin at discharge as he requested discharge and urine culture was still pending at this time. His urine culture needs to be followed up as an outpatient basis and antibiotics adjusted as needed # Ureterolithiasis: - CT abd/pelvis: 1. Pkye-qo-hknnappa right-sided hydronephrosis and mild to moderate right-sided hydroureter. There is a 4 mm calcification in the right mid ureter. There is a 5 mm calcification in the distal right ureter about the right ureterovesicular junction. There is right perinephric and right periureteral fat stranding. 2. Moderate concentric thickening of the marcum of the mildly distended bladder. 3. Moderate-sized patchy opacities in the visualized lower lungs. - urology consulted -cystoscopy and right ureteral stent placement performed on 07/24 - analgesics p.r.n. - monitor renal function planned for lithotripsy coming as outpatient basis # Hypertension: - continue home medications - monitor Code Status: Full code Time Spent with Patient Time attestation: Total time spent providing and/or coordinating discharge services: 35 minutes Exam Narrative: GENERAL: The patient is well developed, not in acute distress HEENT: Nonicteric sclerae, PERRLA, EOMI. Oropharynx clear. Moist mucous membranes. Conjunctivae appear well perfused. CHEST: Chest wall is nontender. HEART: Regular rate and rhythm without murmur, rubs, or gallops LUNGS: Clear to auscultation bilaterally. no respiratory distress ABDOMEN: Soft, positive bowel sounds, non-tender, no organomegaly. SKIN: No rash, no excessive bruising, petechiae, or purpura. NEUROLOGIC: Cranial nerves II-XII intact, alert and oriented x 3, no gross motor deficits EXTREMITIES: no edema, cyanosis or clubbing DS: Data Data Completed and Pending Labs on day of discharge: Labs from last 24 hours 07/26/25 04:48 WBC 11.9 H RBC 3.84 L Hgb 11.9 L Hct 33.8 L MCV 88.0 MCH 31.0 MCHC 35.2 RDW 12.1 Plt Count 271 MPV 10.5 H Sodium 135 L Potassium 3.3 L Chloride 105 Carbon Dioxide 26 Anion Gap 4 BUN 12 Creatinine 0.86 Estim Creat Clear Calc 73 Estimated GFR > 60 Glucose 173 H Calcium 9.3 Total Bilirubin 0.4 AST 22 ALT 15 Alkaline Phosphatase 87 Total Protein 7.1 Albumin 3.8 Procedures/Treatments: Procedure Note - Detailed Date of Procedure 07/24/25 Pre-op Diagnosis Right ureteral stones Post-op Diagnosis Same Procedure Performed 1. Cystoscopy and right ureteral stent placement 2. Right retrograde pyelogram 3. Fluoroscopy with interpretation of images, less than 1 hour Surgeon Jair Mcnamara MD Anesthesia General Indications This is a very pleasent year old man with several days of right renal colic, nausea and concer for fevers. He agrees to stent placement with plan for delayed definitive stone management. Findings 1. No bladder masses, lesions or stones. 2. Appropriate placement of 6f variable length stent. 3. Hydronephrotic drip, no purulence noted. Description of Procedure After a discussion of risks and benefits, the patient offered informed written consent. He was taken to the operating room and placed on the table in the supine position. Anesthesia was induced and an LMA placed, he was transferred to the dorsal lithotomy position and prepped and draped. A call to order was placed. I placed a cystoscope with the aforementioned findings. I attempted to place a wire into the right ureter without success. Unfortunately the wire bent back. I removed the cystoscope and used a semi-rigid ureteroscope which allowed enough purchase to advance the wire to the renal pelvis easily. The ureteroscope was removed. I then backloaded the cystoscope over the wire and advanced into the bladder. The stent was placed over the wire and the wire was removed. Fluoroscopically, the stone was in excellent position. The cystoscope was removed and the patient cleaned and dried of betadine prep. He was transferred to the supine position and awoken from anesthesia. Implants 6F variable length JJ right ureteral stent. Estimated Blood Loss 0 Urine Output 450 Drains Yes Pathology None sent Complications No immediate complications Condition Stable Disposition PACU Imaging Radiologist's impression: ITS Impressions Abdomen/Pelvis CT 07/23/25 16:55 IMPRESSION: 1. Cwdx-yk-mfedsaws right-sided hydronephrosis and mild to moderate right-sided hydroureter. There is a 4 mm calcification in the right mid ureter. There is a 5 mm calcification in the distal right ureter about the right ureterovesicular junction. There is right perinephric and right periureteral fat stranding. 2. Moderate concentric thickening of the marcum of the mildly distended bladder. 3. Moderate-sized patchy opacities in the visualized lower lungs. Abdomen X-Ray 07/24/25 08:25 Impression: 1: Probable distal right ureteral stone near the UVJ. 2: Right nephrolithiasis. Retrograde Pyelogram 07/24/25 11:02 IMPRESSION: 1. Right internal ureteral stent placement. Please refer to real-time procedural findings for details. Discharge Plan Discharge Attending physician on discharge: Chema Munson Consulting providers: Jair Mcnamara Discharging Clinician: Chema Munson Anticipated Discharge Date/Time: 07/27/25 14:54 Patient Disposition: Home Activity: as tolerated Diet: heart healthy Discharge Instructions: Follow-up with your urologist as previously scheduled Needs follow-up on a urine culture that is still pending at the time discharge Patient Instructions: Antibiotic Form, How to Stop Smoking (DC) Patient Language: Upper Sorbian Stand Alone Forms: General Discharge Information Follow-up/Referrals: Jair Mcnamara MD [Physician, Urology] - Keep Reg. Scheduled Appt. [facility] [Primary Care Provider, Medical] - 1 Week Discharge Medications: New amoxicillin-pot clavulanate 875-125 mg tablet 1 tablet PO Q12H Qty: 14 0RF Continued hydroxyzine HCl 25 mg tablet 25 mg PO TID diltiazem HCl [Cardizem CD] 120 mg capsule,extended release 24hr 120 mg PO DAILY hydrochlorothiazide 25 mg tablet 12.5 mg PO DAILY morphine 30 mg tablet 30 mg PO Q8H buprenorphine HCl [Belbuca] 75 mcg film 75 mcg buccal Q12H clopidogrel 75 mg tablet 75 mg PO DAILY bupropion HCl 100 mg tablet 100 mg PO DAILY cetirizine [24Hour Allergy] 10 mg tablet 10 mg PO DAILY trazodone 100 mg tablet 50 mg PO HS PRN (Reason: insomnia) pravastatin 40 mg tablet 40 mg PO HS Linzess 145 mcg capsule 145 mcg PO DAILY Patient Comments: patient takes before breakfast albuterol sulfate [Ventolin HFA] 90 mcg/actuation HFA aerosol inhaler 2 inh inhalation QID PRN (Reason: shortness of breath or wheezing) Date of admission: 07/24/25 17:16 Primary Care Provider: [facility] Admitting Provider: Fatuma Ochoa Attending physician on admission: Fatuma Ochoa Condition: Stable
--- NOTE | 2025-07-29 08:48 | PC.NURSE ---
Spoke with Gui regarding 07/23 urine cx. Results came back growing Pseudomonas aeruginosa. Spoke with Dr. Munson. Ordered Levaquin 750 mg daily by mouth for 7 days. Dispense #7, which I called into pt.s preferred pharmacy. Dr. Munson called pt with new antibiotic.
== END 2025-07-27 15:47 | disposition home or self-care (01) | DRG 661 ==
LOC: ANHED 18:06 → ANH3MEDSUR 19:59
PROVIDERS: General Practice; Student in an Organized Health Care Education/Training Program; Urology; Admitting Provider Student in an Organized Health Care Education/Training Program; Emergency Provider Emergency Medicine; Visit Provider Internal Medicine
PROC: 0T768DZ Dilation of Right Ureter with Intraluminal Device, Via Natural or Artificial Opening Endoscopic (ICD-10-PCS; CPT 52352; principal; 2025-07-24 10:30)
DX: N13.6 Pyonephrosis (principal); I10 Essential (primary) hypertension; F17.210 Nicotine dependence, cigarettes, uncomplicated; Z87.442 Personal history of urinary calculi; Z79.02 Long term (current) use of antithrombotics/antiplatelets
CPT/HCPCS: 36415; 74018; 74176; 74420; 80048; 80053; 81001; 85025; 85027; 87086; 93005; 96361; 96365; 96375; 96376; 99285; A9270; C1758; C1769; C2617; G0378; J0696; J1100; J1171; J2003; J2250; J2270; J2405; J2704; J7030; J7120; Q9966